=== PATIENT | male | born 1945 | race Caucasian/White ===

== ENCOUNTER 2019-11-04 10:56 | Inpatient (IN) | payer MEDICARE, OTHER ==
--- NOTE | 2019-11-04 12:24 | PDOC ---
History of Present Illness - General Chief Complaint: Nausea/Vomiting Stated Complaint: VOMITING Time Seen by Provider: 11/04/19 12:23 History Source: Patient Exam Limitations: No Limitations - History of Present Illness Initial Comments: 11/04/19 12:23 Ty Galvin is a 74M with PMH mild MR, HTN, DM presenting with hyperglycemia with nausea and vomiting. Per family at bedside, patient speaks only Yi and has some mild MR, but able to communicate without issues. Was otherwise healthy yesterday. This morning was checking BGM before meal and reading was 512, patient asymptomatic at that time but did not eat breakfast. Patient given HTN and DM medications. EMS called, BGM in ambulance 134. BGM in ED 131. In ED patient had one vomiting episode. Per family at bedside getting medications without food prior always causes N/V. By the time of evaluation patient said he felt well and denied N/V, abd pain, chest pain, SOB, SALDANA, dizziness, vision changes. Able to ambulate well without issues. Denies cardiac history, no PSH. Denies any pain anywhere. Past History - Past Medical History Allergies/Adverse Reactions: Allergies Allergy/AdvReac Type Severity Reaction Status Date / Time No Known Allergies Allergy Verified 02/11/13 12:24 Home Medications: Ambulatory Orders Carbidopa/Levodopa [Carbidopa-Levodopa 25-100 Tab] 1 each PO TID 11/04/19 Losartan Potassium 100 mg PO HS 11/04/19 Metoprolol Succinate 100 mg PO DAILY 11/04/19 Omeprazole 40 mg PO DAILY 11/04/19 Tamsulosin HCl 0.4 mg PO DAILY 11/04/19 COPD: No Diabetes: Yes HTN: Yes Hypercholesterolemia: Yes - Immunization History Immunization Up to Date: No - Psycho Social/Smoking Cessation Hx Smoking Status: No Smoking History: Current every day smoker Have you smoked in the past 12 months: Yes Number of Cigarettes Smoked Daily: 0 Information on smoking cessation initiated: No Hx Alcohol Use: No Drug/Substance Use Hx: No Substance Use Type: Alcohol Hx Substance Use Treatment: No Review of Systems - Review of Systems Able to Perform ROS?: Yes Constitutional: No: Chills, Diaphoresis, Fever HEENTM: No: Symptoms Reported Respiratory: No: Cough, Shortness of Breath, SOB with Exertion, SOB at Rest, Productive cough Cardiac (ROS): No: Chest Pain, Irregular Heart Rate, Lightheadedness, Palpitations, Chest Tightness ABD/GI: Yes: Nausea, Vomiting. No: Constipated, Diarrhea, Poor Appetite, Poor Fluid Intake : No: Symptoms Reported Musculoskeletal: No: Symptoms Reported Integumentary: No: Symptoms Reported Neurological: No: Headache, Numbness, Paresthesia, Weakness, Unsteady Gait, Ataxia, Dizziness Endocrine: No: Symptoms Reported Hematologic/Lymphatic: No: Symptoms Reported All Other Systems: Reviewed and Negative *Physical Exam - Vital Signs Last Vital Signs Temp Pulse Resp BP Pulse Ox 98.9 F 64 16 90/55 L 95 11/04/19 11:08 11/04/19 11:08 11/04/19 11:08 11/04/19 11:08 11/04/19 11:08 - Physical Exam General Appearance: Yes: Nourished, Appropriately Dressed, Other (resting comfortably in bed, in NAD). No: Apparent Distress HEENT: positive: EOMI, TITO, Normal ENT Inspection, Normal Voice, Symmetrical, Pharynx Normal. negative: Scleral Icterus (R), Scleral Icterus (L), Pharyngeal Erythema, Tonsillar Exudate, Tonsillar Erythema Neck: positive: Trachea midline, Normal Thyroid, Supple. negative: Tender, Rigid, Lymphadenopathy (R), Lymphadenopathy (L), Tender lateral, Tender midline Respiratory/Chest: positive: Lungs Clear, Normal Breath Sounds. negative: Chest Tender, Respiratory Distress, Accessory Muscle Use, Crackles, Rales, Rhonchi, Stridor, Wheezing Cardiovascular: positive: Regular Rhythm, Regular Rate. negative: Murmur Gastrointestinal/Abdominal: positive: Normal Bowel Sounds, Flat, Soft. negative: Tender, Organomegaly, Pulsatile Mass, Guarding, Rebound Musculoskeletal: positive: Normal Inspection. negative: CVA Tenderness, Decreased Range of Motion ( ) Extremity: positive: Normal Capillary Refill, Normal Inspection, Normal Range of Motion, Pelvis Stable. negative: Tender, Swelling, Calf Tenderness Integumentary: positive: Normal Color, Dry, Warm Neurologic: positive: hand stitcher II-XII NML intact, Fully Oriented, Alert, Normal Mood/Affect, Normal Response, Motor Strength 5/5. negative: Sensory Deficit ED Treatment Course - LABORATORY CBC & Chemistry Diagram: 11/04/19 12:51 11/04/19 12:45 - ADDITIONAL ORDERS Additional order review: Laboratory Results 11/04/19 11:59 POC Glucometer 131 11/04/19 11:59 POC Glucometer 131 Medical Decision Making - Medical Decision Making 11/04/19 13:17 Patient presents with reported hyperglycemia and one episode of vomiting in ED. BGM WNL in ED. Patient is completely asymptomatic at this time, VS stable, no concerning findings on PE. Giving 1L NS and Zofran for nausea, getting CMP/CBC for eval lytes and glucose, ECG for eval arrhythmia, UA/UC for eval UTI, and CXR for eval aspiration. Will re-evaluation, likely stable for discharge home if labs WNL. 11/04/19 14:00 Labs notable for: - WBC 12.6 - BUN 26, Cr 2.0, has SANDEE when compared with prior in 2012 at Cr 0.9, likely 2/2 dehydration, 1L IVF given 11/04/19 14:01 Sister: Mago Webb ([phone]), has a bus route to drive, will be back at ~1500. ECG shows sinus thais with HR 59, QRS 98, QTc 401, no concerning ERIC/D or TWI. Pending UA at this time. 11/04/19 15:50 Patient requires inpatient admission for SANDEE and Cr elevation over 2x baseline and further care, as well as WBC elevation with bandemia. 11/04/19 16:[address] Luna with admitting team, [facility] admit u nder Dr. Rouse. Discharge - Discharge Information Problems reviewed: Yes Clinical Impression/Diagnosis: SANDEE (acute kidney injury) Nausea and vomiting Qualifiers: Vomiting type: unspecified Vomiting Intractability: non-intractable Qualified Code(s): R11.2 - Nausea with vomiting, unspecified Condition: Stable - Admission Yes - Follow up/Referral - Patient Discharge Instructions Patient Printed Discharge Instructions: How to Check Your Blood Glucose Additional Instructions: Today you were evaluated for high blood sugar and vomiting. You were examined and appear well. Your blood works do not show any problems. We gave you some IV fluids and a medication called Zofran for nausea. At home please take your medications as prescribed and eat and drink enough food. Follow-up with your primary doctor inthe next 7 days for further care. If your experience fever, chills, nausea, vomiting, diarrhea, weakness, dizziness, chest pain, or any other new or concerning symptoms, please return to the emergency room. - Post Discharge Activity
[2019-11-04] MEDS ORDERED: SODIUM CHLORIDE 0.9% 500 ML INFUS.BAG IV ONE (12:47)
[2019-11-04] MEDS ORDERED: ONDANSETRON 4 MG/2 ML VIAL IVPUSH ONE (12:47)
[2019-11-04] MEDS ORDERED: ONDANSETRON 4 MG/2 ML VIAL ONE (13:04)
[2019-11-04 13:09] LABS: HEMATOCRIT 40.6 % (35.4-49); HEMOGLOBIN 13.6 GM/dL (11.7-16.9); MCH 28.5 pg (25.7-33.7); MCHC 33.5 g/dl (32.0-35.9); MEAN CELL VOLUME 85.1 fl (80-96); MEAN PLT VOLUME 9.1 fl (7.5-11.1); PLATELET COUNT 187 K/MM3 (134-434); RBC 4.77 M/mm3 (4.00-5.60); RDW 14.3 % (11.9-15.9); WHITE BLOOD COUNT 12.6 K/mm3 (4.0-10.0)
[2019-11-04 13:43] LABS: ALBUMIN 3.3 g/dl (3.4-5.0); ALK PHOS 54 U/L (45-117); ANION GAP 12 MMOL/L (8-16); BILIRUBIN,TOTAL 0.8 mg/dL (0.2-1); BLOOD UREA NITROGEN 26.2 mg/dL (7-18); CALCIUM 8.8 mg/dL (8.5-10.1); CHLORIDE 105 mmol/L (98-107); CO2 23 mmol/L (21-32); GLUCOSE,RANDOM 123 mg/dL (74-106); POTASSIUM 3.5 mmol/L (3.5-5.1); SGOT/AST 26 U/L (15-37); SGPT/ALT 14 U/L (13-61); SODIUM 140 mmol/L (136-145); TOT PROT 7.1 g/dl (6.4-8.2)
--- NOTE | 2019-11-04 13:52 | PDOC ---
Documentation entered by Geronimo Allen SCRIBE, acting as scribe for Tino Hamm MD. Tino Hamm MD: This documentation has been prepared by the Carina hooper Nirvannie, SCRIBE, under my direction and personally reviewed by me in its entirety. I confirm that the documentation accurately reflects all work, treatment, procedures, and medical decision making performed by me. Attending Attestation - Resident Resident Name: Emil Carpenter - ED Attending Attestation I have performed the following: I have examined & evaluated the patient, The case was reviewed & discussed with the resident, I agree w/resident's findings & plan - HPI HPI: 11/04/19 12:52 The patient is a 74 year old male, with a significant past medical history of mild MR, HTN, DM, who presents to the emergency department with hyperglycemia. As per patients family member/caregiver at bedside, she tested his blood sugar prior to having breakfast and he was found to have a blood glucose reading of 512, prompting their activation of EMS. With EMS, patients blood glucose was found to be 334 en route. While in the ER, the patient had one episode of emesis. reported brief light headedness which initially prompted the glucose check at home, spontaneously resolved quickly and now asx. no recent infectious/dehydration/cardiopulmonary complaints. Allergies: NKDA - Physicial Exam PE: 11/04/19 13:49 Vitals as noted, systolic blood pressure in the 90s Well-appearing elderly gentleman lying comfortably in stretcher speaking full sentences, smiling and conversant Cataracts, pupils otherwise equal round reactive to light Neck supple Heart is regular, lungs are clear Abdomen benign 1+ pretibial edema Nonfocal neurological exam - Medical Decision Making 11/04/19 13:50 74-year-old male with history of diabetes and hypertension presents with transient lightheadedness, now resolved, and erroneously elevated glucose level at home. Patient has no specific complaints, no red flags on history or physical exam to suggest cardiopulmonary process or neurological process, examination is within normal limits. Blood pressure is borderline in the 90s, w ill monitor and check versus baseline. Labs, Urinalysis EKG, chest x-ray IV fluids, p.o. trial Reassess Heart Score/ECG Review #1 ECG reviewed & interpreted by me at: 14:18 General ECG Interpretation: Sinus Rhythm, Normal Rate (59), Normal Intervals (qtc 401), No acute ischemic changes
[2019-11-04 15:54] LABS: ANISOCYTOSIS 1+; MACROCYTOSIS 0; OVALOCYTE 1+; PLATELET ESTIMATE NORMAL
[2019-11-04] MEDS ORDERED: SODIUM CHLORIDE 1,000 ML IV STA (16:56)
--- NOTE | 2019-11-04 17:08 | HP ---
CHIEF COMPLAINT:dizziness; nausea PCP: HISTORY OF PRESENT ILLNESS: 74 y/o male with PMH of BPH HTN DM congential developmental delay presents to the ED with vague complaints of dizziness/nausea/decreased PO intake as per patients sister; she states he felt dizzy yesterday and today he did not eat anything; she initially took his blood sugar and she thought it was in the 500's then called EMS and it was 140 when he got to the ED he had an episode of vomiting- ; denies any fevers/chills/recent sick contact or travel- patient lives with sister; ambulates on his own - patient did have an episode of vomiting in the ED ER course was notable for: (1) BP 86/66 (2)wbc 12.6, Cr 2 (baseline 1.3) (3)given NS and zofran Recent Travel: denies PAST MEDICAL HISTORY: denies PAST SURGICAL HISTORY: denies Social History: Smoking: never smoked Alcohol:no alcohol use Drugs: no drug use Allergies No Known Allergies Allergy (Verified 02/11/13 12:24) HOME MEDICATIONS: Home Medications Medication Instructions Recorded Carbidopa/Levodopa 1 each PO TID 11/04/19 [Carbidopa-Levodopa 25-100 Tab] Losartan Potassium 100 mg PO HS 11/04/19 Metoprolol Succinate 100 mg PO DAILY 11/04/19 Omeprazole 40 mg PO DAILY 11/04/19 Tamsulosin HCl 0.4 mg PO DAILY 11/04/19 REVIEW OF SYSTEMS CONSTITUTIONAL: Absent: fever, chills, diaphoresis, generalized weakness, malaise, loss of appetite, weight change HEENT: Absent: rhinorrhea, nasal congestion, throat pain, throat swelling, difficulty swallowing, mouth swelling, ear pain, eye pain, visual changes CARDIOVASCULAR: Absent: chest pain, syncope, palpitations, irregular heart rate, lightheadedness, peripheral edema RESPIRATORY: Absent: cough, shortness of breath, dyspnea with exertion, orthopnea, wheezing, stridor, hemoptysis GASTROINTESTINAL: Present: nausea Absent: abdominal pain, abdominal distension, vomiting, diarrhea, constipation, melena, hematochezia GENITOURINARY: Absent: dysuria, frequency, urgency, hesitancy, hematuria, flank pain, genital pain MUSCULOSKELETAL: Absent: myalgia, arthralgia, joint swelling, back pain, neck pain SKIN: Absent: rash, itching, pallor HEMATOLOGIC/IMMUNOLOGIC: Absent: easy bleeding, easy bruising, lymphadenopathy, frequent infections ENDOCRINE: Absent: unexplained weight gain, unexplained weight loss, heat intolerance, cold intolerance NEUROLOGIC: Absent: headache, focal weakness or paresthesias, dizziness, unsteady gait, seizure, mental status changes, bladder or bowel incontinence PSYCHIATRIC: Absent: anxiety, depression, suicidal or homicidal ideation, hallucinations. PHYSICAL EXAMINATION Vital Signs - 24 hr 11/04/19 11/04/19 11/04/19 11:08 12:31 14:50 Temperature 98.9 F Pulse Rate 64 Pulse Rate [ 65 61 Left Radial] Respiratory 16 18 18 Rate Blood Pressure 90/55 L Blood Pressure 97/62 101/63 [Right Arm] O2 Sat by Pulse 95 96 99 Oximetry (%) GENERAL: Awake, alert, and fully oriented, in no acute distress.. EYES: PEERLA; EOMI; no scleral icterus NECK: no JVD; no lymphadenopathy LUNGS: CTA B/L; no rales, rhonchi or wheezing HEART: Regular rate and rhythm, normal S1 and S2 without murmur, rub or gallop. ABDOMEN: Soft, NT/ND +BS in all 4 quadrants MUSCULOSKELETAL: Normal range of motion at all joints. No bony deformities or tenderness. No CVA tenderness. EXTREMITIES: warm; well-perfused no clubbing/cyanosis or edema NEUROLOGICAL: Cranial nerves II-XII intact. Normal speech. Normal gait. SKIN: Warm, dry, normal turgor, no rashes or lesions noted, normal capillary refill. Laboratory Results - last 24 hr 11/04/19 11/04/19 11/04/19 11:59 12:45 12:51 WBC 12.6 H RBC 4.77 Hgb 13.6 Hct 40.6 MCV 85.1 MCH 28.5 MCHC 33.5 RDW 14.3 Plt Count 187 D MPV 9.1 Absolute Neuts (auto) Neutrophils % Neutrophils % (Manual) 63.3 Band Neutrophils % 23.5 Lymphocytes % Lymphocytes % (Manual) 3.0 L Monocytes % Monocytes % (Manual) 7 Eosinophils % Eosinophils % (Manual) 0.0 Basophils % Basophils % (Manual) 0.0 Myelocytes % (Man) 0 Promyelocytes % (Man) 0 Blast Cells % (Manual) 0 Nucleated RBC % 0 Metamyelocytes 0 Hypochromia 0 Platelet Estimate Normal Polychromasia 0 Poikilocytosis 1+ Anisocytosis 1+ Microcytosis 1+ Macrocytosis 0 Spherocytes 1+ Ovalocytes 1+ Sodium 140 Potassium 3.5 Chloride 105 Carbon Dioxide 23 Anion Gap 12 BUN 26.2 H Creatinine 2.0 H Est GFR (CKD-EPI)AfAm 37.53 Est GFR (CKD-EPI)NonAf 32.38 POC Glucometer 131 Random Glucose 123 H Calcium 8.8 Total Bilirubin 0.8 AST 26 ALT 14 Alkaline Phosphatase 54 Total Protein 7.1 Albumin 3.3 L ASSESSMENT/PLAN: 74 y/o male with PMH of BPH HTN DM congential developmental delay presents to the ED with vague complaints of dizziness/nausea/decreased PO intake found to have an SANDEE #SANDEE likely 2/2 poor PO intake -Cr on arrival 2.0 (baseline 1.2) -IVF -renal/bladder US -urine lytes ordered to calculate FeNa -nephro consulted -holding ARB #HTN patient was hypotensive on arrival; responding to fluid -holding ARB given SANDEE -holding beta baltazar and will reevaluate in AM based on hemodynamics -echo ordered #DM -BGMS ACHS -ISS ACHS #Tremors c/w sinemet F/E/N ns@75 monitor electrolytes sodium-controlled diet dvt ppx: heparin sq Family Medical History Family History: Denies Problem List - Problem (1) SANDEE (acute kidney injury) Code(s): N17.9 - ACUTE KIDNEY FAILURE, UNSPECIFIED (2) Nausea and vomiting Code(s): R11.2 - NAUSEA WITH VOMITING, UNSPECIFIED Qualifiers: Vomiting type: unspecified Vomiting Intractability: non-intractable Qualified Code(s): R11.2 - Nausea with vomiting, unspecified Visit type - Emergency Visit Emergency Visit: Yes Care time: The patient presented to the Emergency Department on the above date and was hospitalized for further evaluation of their emergent condition. - New Patient This patient is new to me today: Yes Date on this admission: 11/04/19 - Critical Care Critical Care patient: No ATTENDING PHYSICIAN STATEMENT I saw and evaluated the patient. I reviewed the resident's note and discussed the case with the resident. I agree with the resident's findings and plan as documented. SUBJECTIVE: OBJECTIVE: ASSESSMENT AND PLAN:
[2019-11-04 17:26] LABS: EPI CELLS 0.3 /HPF (0-5/HPF); HYALINE CASTS 7 /lpf (0-8); PH,URINE 7.5 (5.0-8.0); URINE APPEARANCE CLOUDY; URINE BACTERIA 7809.8 /hpf (NEGATIVE); URINE BILIRUBIN NEGATIVE (NEGATIVE); URINE COLOR YELLOW; URINE GLUCOSE (UA) NEGATIVE (NEGATIVE); URINE KETONE NEGATIVE (NEGATIVE); URINE LEUK ESTERASE 2+ (NEGATIVE); URINE NITRITE NEGATIVE (NEGATIVE); URINE PROTEIN NEGATIVE (NEGATIVE); URINE RBC 2 /hpf (0-4); URINE UROBILINOGEN 0.2 mg/dL (0.2-1.0); URINE WBC 27 /hpf (0-5)
[2019-11-04] MEDS: SODIUM CHLORIDE 1,000 ML IV SCH ×2 (19:23→22:33)
--- NOTE | 2019-11-04 19:23 | PN ---
Teaching Attending Note Name of Resident: Deborah Hernandes ATTENDING PHYSICIAN STATEMENT I saw and evaluated the patient. I reviewed the resident's note and discussed the case with the resident. I agree with the resident's findings and plan as documented. SUBJECTIVE: Patient seen and examined at beside, denies CP/SOB, endorses taking NSAID for LBP, denies bleeding from any source, feels OK overall, VSS. ObjectiveL GENERAL: AAox3, mild MR but responds to questions, sister at bedside, NAD EYES: EOMI, mild strabismus (chronic), neck supple, TITO NECK: no JVD LUNGS: CTAB, no crackles HEART: S1, S2+, RRR ABDOMEN: Soft, NT, ND, BS+, no CVA tenderness MUSCULOSKELETAL: Normal range of motion at all joints. No bony deformities or tenderness. No CVA tenderness. EXTREMITIES: warm; well-perfused no clubbing/cyanosis or edema NEUROLOGICAL: Cranial nerves II-XII intact. Normal speech. Normal gait. Vital Signs - 24 hr 11/04/19 11/04/19 11/04/19 11:08 12:31 14:50 Temperature 98.9 F Pulse Rate 64 Pulse Rate [ 65 61 Left Radial] Respiratory 16 18 18 Rate Blood Pressure 90/55 L Blood Pressure 97/62 101/63 [Right Arm] O2 Sat by Pulse 95 96 99 Oximetry (%) Laboratory Results - last 24 hr 11/04/19 11/04/19 11/04/19 11:59 12:45 12:51 WBC 12.6 H RBC 4.77 Hgb 13.6 Hct 40.6 MCV 85.1 MCH 28.5 MCHC 33.5 RDW 14.3 Plt Count 187 D MPV 9.1 Absolute Neuts (auto) Neutrophils % Neutrophils % (Manual) 63.3 Band Neutrophils % 23.5 Lymphocytes % Lymphocytes % (Manual) 3.0 L Monocytes % Monocytes % (Manual) 7 Eosinophils % Eosinophils % (Manual) 0.0 Basophils % Basophils % (Manual) 0.0 Myelocytes % (Man) 0 Promyelocytes % (Man) 0 Blast Cells % (Manual) 0 Nucleated RBC % 0 Metamyelocytes 0 Hypochromia 0 Platelet Estimate Normal Polychromasia 0 Poikilocytosis 1+ Anisocytosis 1+ Microcytosis 1+ Macrocytosis 0 Spherocytes 1+ Ovalocytes 1+ Sodium 140 Potassium 3.5 Chloride 105 Carbon Dioxide 23 Anion Gap 12 BUN 26.2 H Creatinine 2.0 H Est GFR (CKD-EPI)AfAm 37.53 Est GFR (CKD-EPI)NonAf 32.38 POC Glucometer 131 Random Glucose 123 H Calcium 8.8 Total Bilirubin 0.8 AST 26 ALT 14 Alkaline Phosphatase 54 Total Protein 7.1 Albumin 3.3 L Urine Color Urine Appearance Urine pH Ur Specific [place] Urine Protein Urine Glucose (UA) Urine Ketones Urine Blood Urine Nitrite Urine Bilirubin Urine Urobilinogen Ur Leukocyte Esterase Urine WBC (Auto) Urine RBC (Auto) Urine Casts (Auto) U Epithel Cells (Auto) Urine Bacteria (Auto) Ur Random Creatinine Ur Random Sodium Ur Random Urea Nitrogn 11/04/19 11/04/19 11/04/19 16:00 17:20 17:20 WBC RBC Hgb Hct MCV MCH MCHC RDW Plt Count MPV Absolute Neuts (auto) Neutrophils % Neutrophils % (Manual) Band Neutrophils % Lymphocytes % Lymphocytes % (Manual) Monocytes % Monocytes % (Manual) Eosinophils % Eosinophils % (Manual) Basophils % Basophils % (Manual) Myelocytes % (Man) Promyelocytes % (Man) Blast Cells % (Manual) Nucleated RBC % Metamyelocytes Hypochromia Platelet Estimate Polychromasia Poikilocytosis Anisocytosis Microcytosis Macrocytosis Spherocytes Ovalocytes Sodium Potassium Chloride Carbon Dioxide Anion Gap BUN Creatinine Est GFR (CKD-EPI)AfAm Est GFR (CKD-EPI)NonAf POC Glucometer Random Glucose Calcium Total Bilirubin AST ALT Alkaline Phosphatase Total Protein Albumin Urine Color Yellow Urine Appearance Cloudy Urine pH 7.5 D Ur Specific [place] 1.019 Urine Protein Negative Urine Glucose (UA) Negative Urine Ketones Negative Urine Blood Negative Urine Nitrite Negative Urine Bilirubin Negative Urine Urobilinogen 0.2 Ur Leukocyte Esterase 2+ H Urine WBC (Auto) 27 Urine RBC (Auto) 2 Urine Casts (Auto) 7 U Epithel Cells (Auto) 0.3 Urine Bacteria (Auto) 7809.8 Ur Random Creatinine 298.0 H Ur Random Sodium 46 Ur Random Urea Nitrogn 725 Home Medications Medication Instructions Recorded Carbidopa/Levodopa 1 each PO TID 11/04/19 [Carbidopa-Levodopa 25-100 Tab] Losartan Potassium 100 mg PO HS 11/04/19 Metoprolol Succinate 100 mg PO DAILY 11/04/19 Omeprazole 40 mg PO DAILY 11/04/19 Tamsulosin HCl 0.4 mg PO DAILY 11/04/19 Current Medications Generic Name Dose Route Start Last Admin Trade Name Freq PRN Reason Stop Dose Admin Carbidopa/Levodopa 1 each 11/04/19 22:00 Sinemet 25/100 - PO TID [facility] Heparin Sodium (Porcine) 5,000 unit 11/04/19 22:00 Heparin - SQ TID [facility] Sodium Chloride 1,000 mls @ 60 mls/hr 11/04/19 17:30 Normal Saline - IV ASDIR [facility] Insulin Aspart 1 vial 11/04/19 22:00 Novolog Vial Sliding Scale - SQ ACHS [facility] Protocol Metoprolol Succinate 100 mg 11/05/19 10:00 Toprol Xl - PO DAILY [facility] Pantoprazole Sodium 40 mg 11/05/19 10:00 Protonix - PO DAILY [facility] Tamsulosin HCl 0.4 mg 11/05/19 08:30 Flomax - PO DAILY@0830 [facility] 74 [place] speaking M h/o BPH, HTN, DM, mild MR presents to the ED w/ remote h/o vomiting (not clear), NSAID use, hyperglycemia, admitted for SANDEE. SANDEE likely pre-renal and renal (NSAID use recently) fluid challenge, trend CRE, avoid nephrotoxins (counseled pt. and sister), renal/bladder US with urine lytes Renal evaluation: Dr Rutherford HTN hold ARB (in view of SANDEE and low BPs) hold BB for now in view of low BP (obtain further collateral on why pt. 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 Sinamet BPH resume Flomax GERD hold PPI in view of SANDEE DVT ppx Heparin SC Med surg
[2019-11-04 20:48] LABS: LIPASE 95 U/L (73-393)
[2019-11-04] MEDS: INSULIN SLIDING SCALE (NOVOLOG) 1 VIAL SQ SCH (22:29)
[2019-11-04] MEDS: CARBIDOPA/LEVODOPA 25/100 TABLET (FP) PO SCH (22:32)
[2019-11-04] MEDS: HEPARIN NA (PORCINE) 5,000 UNITS/ML 1ML VIAL SQ SCH (22:32)
[2019-11-05 04:23] VITALS: BMI 34.0
[2019-11-05] MEDS: INSULIN SLIDING SCALE (NOVOLOG) 1 VIAL SQ SCH ×4 (06:42→21:28)
[2019-11-05] MEDS: CARBIDOPA/LEVODOPA 25/100 TABLET (FP) PO SCH ×3 (06:43→21:30)
[2019-11-05] MEDS: HEPARIN NA (PORCINE) 5,000 UNITS/ML 1ML VIAL SQ SCH ×3 (06:43→21:29)
[2019-11-05 09:04] LABS: BASO % 0.2 % (0-2.0); EOS % 0.2 % (0-4.5); HEMATOCRIT 35.5 % (35.4-49); LYMPH % 13.7 % (8-40); MCH 28.6 pg (25.7-33.7); MCHC 33.8 g/dl (32.0-35.9); MEAN CELL VOLUME 84.5 fl (80-96); MEAN PLT VOLUME 8.8 fl (7.5-11.1); MONO % 8.8 % (3.8-10.2); NEUT % 77.1 % (42.8-82.8); PLATELET COUNT 134 K/MM3 (134-434); RDW 14.3 % (11.9-15.9); WHITE BLOOD COUNT 7.7 K/mm3 (4.0-10.0)
[2019-11-05] MEDS: TAMSULOSIN HCL 0.4 MG CAP PO SCH (09:36)
[2019-11-05] MEDS: PANTOPRAZOLE 40 MG TABLET PO SCH (09:36)
[2019-11-05 09:49] LABS: ALBUMIN 2.6 g/dl (3.4-5.0); BLOOD UREA NITROGEN 23.7 mg/dL (7-18); CALCIUM 7.7 mg/dL (8.5-10.1); CREATININE 1.6 mg/dL (0.55-1.3); MAGNESIUM 1.5 mg/dL (1.8-2.4); PHOSPHOROUS 2.3 mg/dL (2.5-4.9); POTASSIUM 3.5 mmol/L (3.5-5.1)
--- NOTE | 2019-11-05 11:14 | EKG ---
Test Reason : Blood Pressure : / mmHG Vent. Rate : 059 BPM Atrial Rate : 059 BPM P-R Int : 204 ms QRS Dur : 098 ms QT Int : 406 ms P-R-T Axes : 058 046 046 degrees QTc Int : 401 ms SINUS BRADYCARDIA OTHERWISE NORMAL ECG WHEN COMPARED WITH ECG OF 17-FEB-2013 10:33, NO SIGNIFICANT CHANGE WAS FOUND Confirmed by MD ISHAAN, ALPHONSO ([id number]) on 11/05/2019 11:13:40 AM Referred By: Confirmed By:ALPHONSO QUIROS MD
--- NOTE | 2019-11-05 12:41 | ECHO ---
Version: 1 Name: JOEY LION Exam: Adult Echocardiogram Study Date: 11/05/2019, 10:10 AM Age: 74 Years MMode/2D Measurements & Calculations IVSd: 1.16 cm LVIDs: 3.0 cm LVIDd: 4.3 cm LVPWd: 1.22 cm ACS: 2.08 cm Ao root diam: 3.7 cm LVOT diam: 1.93 cm LA dimension: 4.1 cm Doppler Measurements & Calculations MV E max jerry: 67.0 cm/sec Med E/e': 7.5 MV A max jerry: 77.6 cm/sec Med Peak E' Jerry: 8.9 cm/sec MV E/A: 0.86 Lat E/e': 6.7 Lat Peak E' Jerry: 10.0 cm/sec MR max P.0 mmHg Ao max P.0 mmHg DIOR(I,D): 1.97 cm Ao mean P.6 mmHg LV V1 mean: 57.9 cm/sec Ao V2 max: 122.2 cm/sec LV V1 mean P.54 mmHg PI end-d jerry: 104.5 cm/sec TR max jerry: 247.0 cm/sec TR max P.0 mmHg Procedure A complete two-dimensional transthoracic echocardiogram was performed (2D, M-mode, Doppler and color flow Doppler). The patient was in normal sinus rhythm during the exam. Left Ventricle The left ventricle is normal in size. There is borderline concentric left ventricular hypertrophy. T he left ventricular ejection fraction is normal. Ejection Fraction = 65%. The transmitral spectral Doppler f low pattern is suggestive of impaired LV relaxation. The left ventricular wall motion is normal. Right Ventricle The right ventricle is normal in size and function. Atria The left atrium is borderline dilated. Right atrial size is normal. Mitral Valve The mitral valve is normal in structure and function. There is trace mitral regurgitation. Tricuspid Valve The tricuspid valve is normal in structure and function. There is trace tricuspid regurgitation. Rig ht ventricular systolic pressure is 25 mmhg. Aortic Valve The aortic valve is normal in structure and function. Pulmonic Valve The pulmonic valve is not well visualized. Great Vessels The aortic root is normal size. Pericardium/Pleura There is no pericardial effusion. There is no pleural effusion. Summary Statements The left ventricle is normal in size. There is borderline concentric left ventricular hypertrophy. The left ventricular wall motion is normal. Ejection Fraction = 65%. The right ventricle is normal in size and function. The left atrium is borderline dilated. There is trace mitral regurgitation. There is trace tricuspid regurgitation. Right ventricular systolic pressure is 25 mmhg. MD Blayne Martínez 11/05/2019, 12:40 PM Ordering Physician: Deborah Hernandes Performed By: Tammi Pratt
--- NOTE | 2019-11-05 13:33 | CONSULT ---
Consult Consult Specialty:: Nephrology Reason for Consultation:: SANDEE - History of Present Illness Chief Complaint: nausea and decrease po intake History of Present Illness: Pt is a 74 year old male with pmhx of htn, dm, developemental delay who presents to the ER with decreased PO intake and nausea. He is accompanied by his sister who assisted with his history. He was found to have SANDEE and I was called to evaluate him. He was found to have a blood sugar of 500 at home. It was improved to 140 in the ER. He did have a few episodes of vomiting. He feels better today. He denies shortness of breath. His renal function improved with hydration. - History Source History Provided By: Patient, Family Member - Past Medical History Cardio/Vascular: Yes: HTN Endocrine: Yes: Diabetes Mellitus - Alcohol/Substance Use Hx Alcohol Use: No - Smoking History Smoking history: Current every day smoker Have you smoked in the past 12 months: Yes Aproximately how many cigarettes per day: 0 Home Medications - Allergies Allergies/Adverse Reactions: Allergies Allergy/AdvReac Type Severity Reaction Status Date / Time No Known Allergies Allergy Verified 02/11/13 12:24 - Home Medications Home Medications: Ambulatory Orders Carbidopa/Levodopa [Carbidopa-Levodopa 25-100 Tab] 1 each PO TID 11/04/19 Losartan Potassium 100 mg PO HS 11/04/19 Metoprolol Succinate 100 mg PO DAILY 11/04/19 Omeprazole 40 mg PO DAILY 11/04/19 Tamsulosin HCl 0.4 mg PO DAILY 11/04/19 metFORMIN HCL [Metformin HCl] 500 mg DAILY 11/05/19 Family Medical History Family History: Denies Review of Systems - Review of Systems Constitutional: reports: Malaise Eyes: reports: No Symptoms HENT: reports: No Symptoms Neck: reports: No Symptoms Cardiovascular: reports: No Symptoms Respiratory: reports: No Symptoms Gastrointestinal: reports: Nausea, Vomiting Musculoskeletal: reports: No Symptoms Integumentary: reports: No Symptoms Neurological: reports: No Symptoms Endocrine: reports: No Symptoms Hematology/Lymphatic: reports: No Symptoms Psychiatric: reports: No Symptoms Physical Exam Vital Signs: Vital Signs Temperature 98.4 F 11/05/19 09:09 Pulse Rate 52 L 11/05/19 09:09 Respiratory Rate 20 11/05/19 09:09 Blood Pressure 105/41 L 11/05/19 09:09 O2 Sat by Pulse Oximetry (%) 95 11/05/19 09:00 Constitutional: Yes: Calm Eyes: Yes: Conjunctiva Clear HENT: Yes: Atraumatic Neck: Yes: Supple Cardiovascular: Yes: S1, S2 Respiratory: Yes: CTA Bilaterally Gastrointestinal: Yes: Normal Bowel Sounds, Soft Renal/: Yes: WNL Musculoskeletal: Yes: WNL Edema: No Neurological: Yes: Oriented Psychiatric: Yes: Oriented Labs: CBC, BMP 11/05/19 08:00 11/05/19 08:00 Imaging - Results Ultrasound: Report Reviewed Problem List - Problems (1) SANDEE (acute kidney injury) Code(s): N17.9 - ACUTE KIDNEY FAILURE, UNSPECIFIED (2) Nausea and vomiting Code(s): R11.2 - NAUSEA WITH VOMITING, UNSPECIFIED Qualifiers: Vomiting type: unspecified Vomiting Intractability: non-intractable Qualified Code(s): R11.2 - Nausea with vomiting, unspecified Assessment/Plan Current Medications Generic Name Dose Route Start Last Admin Trade Name Freq PRN Reason Stop Dose Admin Carbidopa/Levodopa 1 each 11/04/19 22:00 11/05/19 06:43 Sinemet 25/100 - PO 1 each TID ROLLY Administration Heparin Sodium (Porcine) 5,000 unit 11/04/19 22:00 11/05/19 06:43 Heparin - SQ 5,000 unit TID ROLLY Administration Sodium Chloride 1,000 mls @ 60 mls/hr 11/04/19 17:30 11/04/19 22:33 Normal Saline - IV 60 mls/hr ASDIR ROLLY Administration Insulin Aspart 1 vial 11/04/19 22:00 11/05/19 11:55 Novolog Vial Sliding Scale - SQ Not Given ACHS [facility] Protocol Metoprolol Succinate 100 mg 11/05/19 10:00 11/05/19 09:36 Toprol Xl - PO 100 mg DAILY ROLLY Administration Pantoprazole Sodium 40 mg 11/05/19 10:00 11/05/19 09:36 Protonix - PO 40 mg DAILY ROLLY Administration Tamsulosin HCl 0.4 mg 11/05/19 08:30 11/05/19 09:36 Flomax - PO 0.4 mg DAILY@0830 ROLLY Administration Impression 1. SANDEE 2. DM 3. dehydration 4. htn 5. bph Plan - cont fluids, cras improving - metformin on hold, can resume once cras improved - likely pre-renal disease as cras is improving with hydration - losartan 100 mg on hold, monitor bp which is low, will likely need to decrease dose once restarted - renal ultrasound reviewed
--- NOTE | 2019-11-05 15:16 | PN ---
Teaching Attending Note Name of Resident: Ryne Doe ATTENDING PHYSICIAN STATEMENT I saw and evaluated the patient. I reviewed the resident's note and discussed the case with the resident. I agree with the resident's findings and plan as documented. SUBJECTIVE: Feels well, no complaints. No abdominal pain/nausea/vomiting. OBJECTIVE: Afebrile, Hemodynamically Stable. Last Vital Signs Temp Pulse Resp BP Pulse Ox 97.6 F 58 L 18 101/56 L 95 11/05/19 14:54 11/05/19 14:54 11/05/19 14:54 11/05/19 14:54 11/05/19 09:00 HEENT - Atraumatic, normocephalic Heart - S1, S2, RRR Lungs - clear to auscultation Abdomen - soft, non-tender. Bowel Sounds normal. Extremities - no edema, no calf tenderness. Laboratory Results - last 24 hr 11/04/19 11/04/19 11/04/19 12:45 12:51 16:00 WBC RBC Hgb Hct MCV MCH MCHC RDW Plt Count MPV Absolute Neuts (auto) Neutrophils % Neutrophils % (Manual) 63.3 Band Neutrophils % 23.5 Lymphocytes % Lymphocytes % (Manual) 3.0 L Monocytes % Monocytes % (Manual) 7 Eosinophils % Eosinophils % (Manual) 0.0 Basophils % Basophils % (Manual) 0.0 Myelocytes % (Man) 0 Promyelocytes % (Man) 0 Blast Cells % (Manual) 0 Nucleated RBC % 0 Metamyelocytes 0 Hypochromia 0 Platelet Estimate Normal Polychromasia 0 Poikilocytosis 1+ Anisocytosis 1+ Microcytosis 1+ Macrocytosis 0 Spherocytes 1+ Ovalocytes 1+ Sodium 140 Potassium 3.5 Chloride 105 Carbon Dioxide 23 Anion Gap 12 BUN 26.2 H Creatinine 2.0 H Est GFR (CKD-EPI)AfAm 37.53 Est GFR (CKD-EPI)NonAf 32.38 POC Glucometer Random Glucose 123 H Calcium 8.8 Phosphorus Magnesium Total Bilirubin 0.8 AST 26 ALT 14 Alkaline Phosphatase 54 Creatine Kinase 155 Creatine Kinase Index No Result Required. CK-MB (CK-2) < 1.0 Troponin I < 0.02 Total Protein 7.1 Albumin 3.3 L Lipase 95 Urine Color Yellow Urine Appearance Cloudy Urine pH 7.5 D Ur Specific [place] 1.019 Urine Protein Negative Urine Glucose (UA) Negative Urine Ketones Negative Urine Blood Negative Urine Nitrite Negative Urine Bilirubin Negative Urine Urobilinogen 0.2 Ur Leukocyte Esterase 2+ H Urine WBC (Auto) 27 Urine RBC (Auto) 2 Urine Casts (Auto) 7 U Epithel Cells (Auto) 0.3 Urine Bacteria (Auto) 7809.8 Ur Random Creatinine Ur Random Sodium Ur Random Urea Nitrogn 11/04/19 11/04/19 11/04/19 17:20 17:20 22:25 WBC RBC Hgb Hct MCV MCH MCHC RDW Plt Count MPV Absolute Neuts (auto) Neutrophils % Neutrophils % (Manual) Band Neutrophils % Lymphocytes % Lymphocytes % (Manual) Monocytes % Monocytes % (Manual) Eosinophils % Eosinophils % (Manual) Basophils % Basophils % (Manual) Myelocytes % (Man) Promyelocytes % (Man) Blast Cells % (Manual) Nucleated RBC % Metamyelocytes Hypochromia Platelet Estimate Polychromasia Poikilocytosis Anisocytosis Microcytosis Macrocytosis Spherocytes Ovalocytes Sodium Potassium Chloride Carbon Dioxide Anion Gap BUN Creatinine Est GFR (CKD-EPI)AfAm Est GFR (CKD-EPI)NonAf POC Glucometer 86 Random Glucose Calcium Phosphorus Magnesium Total Bilirubin AST ALT Alkaline Phosphatase Creatine Kinase Creatine Kinase Index CK-MB (CK-2) Troponin I Total Protein Albumin Lipase Urine Color Urine Appearance Urine pH Ur Specific [place] Urine Protein Urine Glucose (UA) Urine Ketones Urine Blood Urine Nitrite Urine Bilirubin Urine Urobilinogen Ur Leukocyte Esterase Urine WBC (Auto) Urine RBC (Auto) Urine Casts (Auto) U Epithel Cells (Auto) Urine Bacteria (Auto) Ur Random Creatinine 298.0 H Ur Random Sodium 46 Ur Random Urea Nitrogn 725 11/05/19 11/05/19 11/05/19 06:41 08:00 08:00 WBC 7.7 RBC 4.20 Hgb 12.0 Hct 35.5 MCV 84.5 MCH 28.6 MCHC 33.8 RDW 14.3 Plt Count 134 D MPV 8.8 Absolute Neuts (auto) 5.9 Neutrophils % 77.1 D Neutrophils % (Manual) Band Neutrophils % Lymphocytes % 13.7 D Lymphocytes % (Manual) Monocytes % 8.8 Monocytes % (Manual) Eosinophils % 0.2 D Eosinophils % (Manual) Basophils % 0.2 Basophils % (Manual) Myelocytes % (Man) Promyelocytes % (Man) Blast Cells % (Manual) Nucleated RBC % 0 Metamyelocytes Hypochromia Platelet Estimate Polychromasia Poikilocytosis Anisocytosis Microcytosis Macrocytosis Spherocytes Ovalocytes Sodium 141 Potassium 3.5 Chloride 110 H Carbon Dioxide 23 Anion Gap 8 BUN 23.7 H Creatinine 1.6 H Est GFR (CKD-EPI)AfAm 49.15 Est GFR (CKD-EPI)NonAf 42.41 POC Glucometer 104 Random Glucose 94 Calcium 7.7 L Phosphorus 2.3 L Magnesium 1.5 L Total Bilirubin 1.0 AST 28 ALT 9 L Alkaline Phosphatase 40 L Creatine Kinase Creatine Kinase Index CK-MB (CK-2) Troponin I Total Protein 6.0 L Albumin 2.6 L Lipase Urine Color Urine Appearance Urine pH Ur Specific [place] Urine Protein Urine Glucose (UA) Urine Ketones Urine Blood Urine Nitrite Urine Bilirubin Urine Urobilinogen Ur Leukocyte Esterase Urine WBC (Auto) Urine RBC (Auto) Urine Casts (Auto) U Epithel Cells (Auto) Urine Bacteria (Auto) Ur Random Creatinine Ur Random Sodium Ur Random Urea Nitrogn 11/05/19 11:53 WBC RBC Hgb Hct MCV MCH MCHC RDW Plt Count MPV Absolute Neuts (auto) Neutrophils % Neutrophils % (Manual) Band Neutrophils % Lymphocytes % Lymphocytes % (Manual) Monocytes % Monocytes % (Manual) Eosinophils % Eosinophils % (Manual) Basophils % Basophils % (Manual) Myelocytes % (Man) Promyelocytes % (Man) Blast Cells % (Manual) Nucleated RBC % Metamyelocytes Hypochromia Platelet Estimate Polychromasia Poikilocytosis Anisocytosis Microcytosis Macrocytosis Spherocytes Ovalocytes Sodium Potassium Chloride Carbon Dioxide Anion Gap BUN Creatinine Est GFR (CKD-EPI)AfAm Est GFR (CKD-EPI)NonAf POC Glucometer 114 Random Glucose Calcium Phosphorus Magnesium Total Bilirubin AST ALT Alkaline Phosphatase Creatine Kinase Creatine Kinase Index CK-MB (CK-2) Troponin I Total Protein Albumin Lipase Urine Color Urine Appearance Urine pH Ur Specific [place] Urine Protein Urine Glucose (UA) Urine Ketones Urine Blood Urine Nitrite Urine Bilirubin Urine Urobilinogen Ur Leukocyte Esterase Urine WBC (Auto) Urine RBC (Auto) Urine Casts (Auto) U Epithel Cells (Auto) Urine Bacteria (Auto) Ur Random Creatinine Ur Random Sodium Ur Random Urea Nitrogn Current Medications Generic Name Dose Route Start Last Admin Trade Name Freq PRN Reason Stop Dose Admin Carbidopa/Levodopa 1 each 11/04/19 22:00 11/05/19 14:26 Sinemet 25/100 - PO 1 each TID ROLLY Administration Heparin Sodium (Porcine) 5,000 unit 11/04/19 22:00 11/05/19 14:26 Heparin - SQ 5,000 unit TID ROLLY Administration Sodium Chloride 1,000 mls @ 60 mls/hr 11/04/19 17:30 11/04/19 22:33 Normal Saline - IV 60 mls/hr ASDIR ROLLY Administration Insulin Aspart 1 vial 11/04/19 22:00 11/05/19 11:55 Novolog Vial Sliding Scale - SQ Not Given ACHS [facility] Protocol Metoprolol Succinate 100 mg 11/05/19 10:00 11/05/19 09:36 Toprol Xl - PO 100 mg DAILY ROLLY Administration Pantoprazole Sodium 40 mg 11/05/19 10:00 11/05/19 09:36 Protonix - PO 40 mg DAILY ROLLY Administration Tamsulosin HCl 0.4 mg 11/05/19 08:30 11/05/19 09:36 Flomax - PO 0.4 mg DAILY@0830 ROLLY Administration Home Medications Medication Instructions Recorded Carbidopa/Levodopa 1 each PO TID 11/04/19 [Carbidopa-Levodopa 25-100 Tab] Losartan Potassium 100 mg PO HS 11/04/19 Metoprolol Succinate 100 mg PO DAILY 11/04/19 Omeprazole 40 mg PO DAILY 11/04/19 Tamsulosin HCl 0.4 mg PO DAILY 11/04/19 metFORMIN HCL [Metformin HCl] 500 mg DAILY 11/05/19 ASSESSMENT AND PLAN: 74 year old male with BPH, HTN, DM 2, mild MR, admitted with SANDEE. 1. SANDEE, likely pre-renal, ?sec to NSAID use. Renal/Bladder US negative renal function improving with IV hydration Nephrology consulted. 2. HTN - ARB held due to SANDEE. Continue Metoprolol. 3. DM 2 - Metformin held. continue Novolog sliding scale. 4. Parkinson's Disease - continue Sinemet. 5. BPH - continue Flomax. 6. Hypomagnesemia/Hypophosphatemia - repleted. DVT Px - Heparin SQ.
[2019-11-05] MEDS ORDERED: MAGNESIUM SULF 50% (8.12 MEQ/2 ML-1 GM VIAL) IVPB ONE (16:15)
--- NOTE | 2019-11-05 16:24 | PN ---
Physical Exam: SUBJECTIVE: Patient seen and examined. Patient denies dizziness, chest pain, abd pain, SOB, or other concerns. States that he feels better. OBJECTIVE: Vital Signs Period Temp Pulse Resp BP Sys/Lindsay Pulse Ox Last 24 Hr 97.6 F-98.4 F 52-79 18-20 101-132/41-67 95-99 GENERAL: The patient is awake, alert, and fully oriented, in no acute distress. HEAD: Normal with no signs of trauma. EYES: EOMI, no scleral icterus ENT: dry mucous membranes NECK: Trachea midline, full range of motion, supple. LUNGS: Breath sounds equal, clear to auscultation bilaterally, no wheezes, no crackles, no accessory muscle use. HEART: Regular rate and rhythm, S1, S2 without murmur, rub or gallop. ABDOMEN: Soft, nontender, nondistended, normoactive bowel sounds, no guarding, no rebound EXTREMITIES: 2+ pulses, warm, well-perfused, no edema. NEUROLOGICAL: Normal speech, gait not observed. PSYCH: Normal mood, normal affect SKIN: Warm, dry, normal turgor, no rashes or lesions noted Laboratory Results - last 24 hr 11/04/19 11/04/19 11/04/19 12:45 16:00 17:20 WBC RBC Hgb Hct MCV MCH MCHC RDW Plt Count MPV Absolute Neuts (auto) Neutrophils % Lymphocytes % Monocytes % Eosinophils % Basophils % Nucleated RBC % Sodium 140 Potassium 3.5 Chloride 105 Carbon Dioxide 23 Anion Gap 12 BUN 26.2 H Creatinine 2.0 H Est GFR (CKD-EPI)AfAm 37.53 Est GFR (CKD-EPI)NonAf 32.38 POC Glucometer Random Glucose 123 H Calcium 8.8 Phosphorus Magnesium Total Bilirubin 0.8 AST 26 ALT 14 Alkaline Phosphatase 54 Creatine Kinase 155 Creatine Kinase Index No Result Required. CK-MB (CK-2) < 1.0 Troponin I < 0.02 Total Protein 7.1 Albumin 3.3 L Lipase 95 Urine Color Yellow Urine Appearance Cloudy Urine pH 7.5 D Ur Specific [place] 1.019 Urine Protein Negative Urine Glucose (UA) Negative Urine Ketones Negative Urine Blood Negative Urine Nitrite Negative Urine Bilirubin Negative Urine Urobilinogen 0.2 Ur Leukocyte Esterase 2+ H Urine WBC (Auto) 27 Urine RBC (Auto) 2 Urine Casts (Auto) 7 U Epithel Cells (Auto) 0.3 Urine Bacteria (Auto) 7809.8 Ur Random Creatinine 298.0 H Ur Random Sodium 46 Ur Random Urea Nitrogn 11/04/19 11/04/19 11/05/19 17:20 22:25 06:41 WBC RBC Hgb Hct MCV MCH MCHC RDW Plt Count MPV Absolute Neuts (auto) Neutrophils % Lymphocytes % Monocytes % Eosinophils % Basophils % Nucleated RBC % Sodium Potassium Chloride Carbon Dioxide Anion Gap BUN Creatinine Est GFR (CKD-EPI)AfAm Est GFR (CKD-EPI)NonAf POC Glucometer 86 104 Random Glucose Calcium Phosphorus Magnesium Total Bilirubin AST ALT Alkaline Phosphatase Creatine Kinase Creatine Kinase Index CK-MB (CK-2) Troponin I Total Protein Albumin Lipase Urine Color Urine Appearance Urine pH Ur Specific [place] Urine Protein Urine Glucose (UA) Urine Ketones Urine Blood Urine Nitrite Urine Bilirubin Urine Urobilinogen Ur Leukocyte Esterase Urine WBC (Auto) Urine RBC (Auto) Urine Casts (Auto) U Epithel Cells (Auto) Urine Bacteria (Auto) Ur Random Creatinine Ur Random Sodium Ur Random Urea Nitrogn 725 11/05/19 11/05/19 11/05/19 08:00 08:00 11:53 WBC 7.7 RBC 4.20 Hgb 12.0 Hct 35.5 MCV 84.5 MCH 28.6 MCHC 33.8 RDW 14.3 Plt Count 134 D MPV 8.8 Absolute Neuts (auto) 5.9 Neutrophils % 77.1 D Lymphocytes % 13.7 D Monocytes % 8.8 Eosinophils % 0.2 D Basophils % 0.2 Nucleated RBC % 0 Sodium 141 Potassium 3.5 Chloride 110 H Carbon Dioxide 23 Anion Gap 8 BUN 23.7 H Creatinine 1.6 H Est GFR (CKD-EPI)AfAm 49.15 Est GFR (CKD-EPI)NonAf 42.41 POC Glucometer 114 Random Glucose 94 Calcium 7.7 L Phosphorus 2.3 L Magnesium 1.5 L Total Bilirubin 1.0 AST 28 ALT 9 L Alkaline Phosphatase 40 L Creatine Kinase Creatine Kinase Index CK-MB (CK-2) Troponin I Total Protein 6.0 L Albumin 2.6 L Lipase Urine Color Urine Appearance Urine pH Ur Specific [place] Urine Protein Urine Glucose (UA) Urine Ketones Urine Blood Urine Nitrite Urine Bilirubin Urine Urobilinogen Ur Leukocyte Esterase Urine WBC (Auto) Urine RBC (Auto) Urine Casts (Auto) U Epithel Cells (Auto) Urine Bacteria (Auto) Ur Random Creatinine Ur Random Sodium Ur Random Urea Nitrogn Active Medications Generic Name Dose Route Start Last Admin Trade Name Jenn PRN Reason Stop Dose Admin Carbidopa/Levodopa 1 each 11/04/19 22:00 11/05/19 14:26 Sinemet 25/100 - PO 1 each TID ROLLY Administration Heparin Sodium (Porcine) 5,000 unit 11/04/19 22:00 11/05/19 14:26 Heparin - SQ 5,000 unit TID ROLLY Administration Sodium Chloride 1,000 mls @ 60 mls/hr 11/04/19 17:30 11/04/19 22:33 Normal Saline - IV 60 mls/hr ASDIR ROLLY Administration Potassium Phosphate 15 mm/ 255 mls @ 42.5 mls/hr 11/05/19 17:00 Sodium Chloride IVPB 11/05/19 22:59 ONCE ONE Insulin Aspart 1 vial 11/04/19 22:00 11/05/19 11:55 Novolog Vial Sliding Scale - SQ Not Given [facility] Protocol Metoprolol Succinate 100 mg 11/05/19 10:00 11/05/19 09:36 Toprol Xl - PO 100 mg DAILY ROLLY Administration Pantoprazole Sodium 40 mg 11/05/19 10:00 11/05/19 09:36 Protonix - PO 40 mg DAILY ROLLY Administration Tamsulosin HCl 0.4 mg 11/05/19 08:30 11/05/19 09:36 Flomax - PO 0.4 mg DAILY@0830 ROLLY Administration ASSESSMENT/PLAN: 74 y/o/m with PMHx of BPH, HTN, DM, congential developmental delay presents to the ED with vague complaints of dizziness/nausea/decreased PO intake found to have an SANDEE. #SANDEE - likely 2/2 poor PO intake - Cr on arrival 2.0 (baseline 1.2), now improving, continue to monitor - IVF - renal/bladder US normal - nephro consulted - Dr. Rutherford - holding losartan #HTN - patient was hypotensive on arrival; responded well to fluids - holding ARB given SANDEE - holding beta baltazar and will re start when appropriate pending on BP - echo completed - LVEF 65% #DM - BGMS ACHS - ISS ACHS #Tremors - continue sinemet #FEN - NS@75mls/hr - monitor electrolytes - sodiumcontrolled diet #Prophylaxis - Heparin #Disposition - monitor for improvement of SANDEE Visit type - Emergency Visit Emergency Visit: Yes ED Registration Date: 11/04/19 Care time: The patient presented to the Emergency Department on the above date and was hospitalized for further evaluation of their emergent condition. - New Patient This patient is new to me today: Yes Date on this admission: 11/05/19 - Critical Care Critical Care patient: No ATTENDING PHYSICIAN STATEMENT I saw and evaluated the patient. I reviewed the resident's note and discussed the case with the resident. I agree with the resident's findings and plan as documented. SUBJECTIVE: OBJECTIVE: ASSESSMENT AND PLAN:
[2019-11-05] MEDS ORDERED: POTASSIUM PHOSPHATE 15 MM in SODIUM CHLORIDE 250 ML IVPB ONE (17:00)
[2019-11-05] MEDS: SODIUM CHLORIDE 1,000 ML IV SCH (17:35)
[2019-11-06] MEDS: HEPARIN NA (PORCINE) 5,000 UNITS/ML 1ML VIAL SQ SCH ×3 (06:49→21:38)
[2019-11-06] MEDS: CARBIDOPA/LEVODOPA 25/100 TABLET (FP) PO SCH ×3 (06:49→21:38)
[2019-11-06] MEDS: SODIUM CHLORIDE 1,000 ML IV SCH ×2 (06:49→21:36)
[2019-11-06] MEDS: INSULIN SLIDING SCALE (NOVOLOG) 1 VIAL SQ SCH ×4 (06:53→21:38)
[2019-11-06 09:14] LABS: BLOOD UREA NITROGEN 19.5 mg/dL (7-18); CALCIUM 7.6 mg/dL (8.5-10.1); CREATININE 1.3 mg/dL (0.55-1.3); POTASSIUM 3.6 mmol/L (3.5-5.1)
[2019-11-06] MEDS: PANTOPRAZOLE 40 MG TABLET PO SCH (09:42)
[2019-11-06] MEDS: TAMSULOSIN HCL 0.4 MG CAP PO SCH (09:42)
--- NOTE | 2019-11-06 10:26 | PN ---
Teaching Attending Note Name of Resident: Ryne Doe ATTENDING PHYSICIAN STATEMENT I saw and evaluated the patient. I reviewed the resident's note and discussed the case with the resident. I agree with the resident's findings and plan as documented. SUBJECTIVE: Feels well, no complaints. No abdominal pain/nausea/vomiting/dysuria. OBJECTIVE: Afebrile, Hemodynamically Stable. AAO x 1. Last Vital Signs Temp Pulse Resp BP Pulse Ox 97.6 F 58 L 18 101/56 L 95 11/05/19 14:54 11/05/19 14:54 11/05/19 14:54 11/05/19 14:54 11/05/19 09:00 Heart - S1, S2, RRR Lungs - clear to auscultation Abdomen - soft, non-tender. Bowel Sounds normal. Extremities - no edema, no calf tenderness. Laboratory Results - last 24 hr 11/05/19 11/05/19 11/05/19 11:53 17:31 21:17 Sodium Potassium Chloride Carbon Dioxide Anion Gap BUN Creatinine Est GFR (CKD-EPI)AfAm Est GFR (CKD-EPI)NonAf POC Glucometer 114 111 159 Random Glucose Calcium 11/06/19 11/06/19 06:47 08:20 Sodium 140 Potassium 3.6 Chloride 109 H Carbon Dioxide 25 Anion Gap 6 L BUN 19.5 H Creatinine 1.3 Est GFR (CKD-EPI)AfAm 63.18 Est GFR (CKD-EPI)NonAf 54.51 POC Glucometer 96 Random Glucose 98 Calcium 7.6 L Current Medications Generic Name Dose Route Start Last Admin Trade Name Freq PRN Reason Stop Dose Admin Carbidopa/Levodopa 1 each 11/04/19 22:00 11/06/19 06:49 Sinemet 25/100 - PO 1 each TID ROLLY Administration Heparin Sodium (Porcine) 5,000 unit 11/04/19 22:00 11/06/19 06:49 Heparin - SQ 5,000 unit TID ROLLY Administration Sodium Chloride 1,000 mls @ 60 mls/hr 11/04/19 17:30 11/06/19 06:49 Normal Saline - IV 60 mls/hr ASDIR ROLLY Administration Insulin Aspart 1 vial 11/04/19 22:00 11/06/19 06:53 Novolog Vial Sliding Scale - SQ Not Given ACHS ROLLY Protocol Metoprolol Succinate 100 mg 11/05/19 10:00 11/05/19 09:36 Toprol Xl - PO 100 mg DAILY ROLLY Administration Pantoprazole Sodium 40 mg 11/05/19 10:00 11/06/19 09:42 Protonix - PO 40 mg DAILY ROLLY Administration Tamsulosin HCl 0.4 mg 11/05/19 08:30 11/06/19 09:42 Flomax - PO 0.4 mg DAILY@0830 ROLLY Administration Home Medications Medication Instructions Recorded Carbidopa/Levodopa 1 each PO TID 11/04/19 [Carbidopa-Levodopa 25-100 Tab] RX: Losartan Potassium 100 mg PO HS 11/04/19 RX: Metoprolol Succinate 100 mg PO DAILY 11/04/19 RX: Omeprazole 40 mg PO DAILY 11/04/19 RX: Tamsulosin HCl 0.4 mg PO DAILY 11/04/19 metFORMIN HCL [Metformin HCl] 500 mg DAILY 11/05/19 ASSESSMENT AND PLAN: 74 year old male with BPH, HTN, DM 2, cognitive impairment, admitted with SANDEE. 1. SANDEE, likely pre-renal, ?sec to NSAID use +/- UTI Renal/Bladder US negative Renal function improving with IV hydration Urine Cx pos for NLFGNB > 100,000 CFU/ml Will start Ceftriaxone empirically Nephrology following Urology referral as out-patient. 2. HTN - ARB held due to SANDEE. Continue Metoprolol. 3. DM 2 - Metformin held. continue Novolog sliding scale. 4. Parkinson's Disease - continue Sinemet. 5. BPH - continue Flomax. 6. Hypomagnesemia/Hypophosphatemia - repleted. DVT Px - Heparin SQ.
--- NOTE | 2019-11-06 10:36 | PN ---
Physical Exam: SUBJECTIVE: Patient seen and examined. Denies any pain with urination. Denies chest pain, abd pain, or other concerns. OBJECTIVE: Vital Signs Period Temp Pulse Resp BP Sys/Lindsay Pulse Ox Last 24 Hr 97.2 F-98.5 F 52-63 18-18 101-134/56-83 98 GENERAL: The patient is awake, alert, in no acute distress. HEAD: Normal with no signs of trauma. EYES: EOMI, no scleral icterus ENT: dry mucous membranes NECK: Trachea midline, full range of motion, supple. LUNGS: Breath sounds equal, clear to auscultation bilaterally, no wheezes, no crackles, no accessory muscle use. HEART: RRR, no murmur noted ABDOMEN: Soft, nontender, nondistended, normoactive bowel sounds, no guarding, no rebound EXTREMITIES: 2+ pulses, warm, well-perfused, no edema. NEUROLOGICAL: Normal speech, gait not observed. PSYCH: Normal mood, normal affect SKIN: Warm, dry, normal turgor, no rashes or lesions noted Laboratory Results - last 24 hr 11/05/19 11/05/19 11/05/19 11:53 17:31 21:17 Sodium Potassium Chloride Carbon Dioxide Anion Gap BUN Creatinine Est GFR (CKD-EPI)AfAm Est GFR (CKD-EPI)NonAf POC Glucometer 114 111 159 Random Glucose Calcium 11/06/19 11/06/19 06:47 08:20 Sodium 140 Potassium 3.6 Chloride 109 H Carbon Dioxide 25 Anion Gap 6 L BUN 19.5 H Creatinine 1.3 Est GFR (CKD-EPI)AfAm 63.18 Est GFR (CKD-EPI)NonAf 54.51 POC Glucometer 96 Random Glucose 98 Calcium 7.6 L Active Medications Generic Name Dose Route Start Last Admin Trade Name Freq PRN Reason Stop Dose Admin Carbidopa/Levodopa 1 each 11/04/19 22:00 11/06/19 06:49 Sinemet 25/100 - PO 1 each TID ROLLY Administration Heparin Sodium (Porcine) 5,000 unit 11/04/19 22:00 11/06/19 06:49 Heparin - SQ 5,000 unit TID ROLLY Administration Sodium Chloride 1,000 mls @ 60 mls/hr 11/04/19 17:30 11/06/19 06:49 Normal Saline - IV 60 mls/hr ASDIR ROLLY Administration Ceftriaxone Sodium 1 gm/ 50 mls @ 200 mls/hr 11/06/19 10:30 Dextrose IVPB DAILY [facility] Protocol Insulin Aspart 1 vial 11/04/19 22:00 11/06/19 06:53 Novolog Vial Sliding Scale - SQ Not Given ACHS [facility] Protocol Metoprolol Succinate 100 mg 11/05/19 10:00 11/05/19 09:36 Toprol Xl - PO 100 mg DAILY ROLLY Administration Pantoprazole Sodium 40 mg 11/05/19 10:00 11/06/19 09:42 Protonix - PO 40 mg DAILY ROLLY Administration Tamsulosin HCl 0.4 mg 11/05/19 08:30 11/06/19 09:42 Flomax - PO 0.4 mg DAILY@0830 ROLLY Administration ASSESSMENT/PLAN: 74 y/o/m with PMHx of BPH, HTN, DM, congential developmental delay presents to the ED with vague complaints of dizziness/nausea/decreased PO intake found to have an SANDEE. #SANDEE - resolved - likely 2/2 poor PO intake - Cr on arrival 2.0 (baseline 1.2), now back to normal - renal/bladder US normal - nephro consulted - Dr. Rutherford - EVF discontinued, encourage PO hydration #UTI - UA positive for 2+ leuk esterase - Urine Cx positive for non lactose fermenting GNB >100,000 CFU - Started on Ceftriaxone 1g QD - pending sensitivities #HTN - patient was hypotensive on arrival; responded well to fluids - restarted Losartan as kidney function has now improved - holding beta baltazar and will re start when appropriate pending on BP - echo completed - LVEF 65% #DM - BGMS ACHS - ISS ACHS #Tremors - continue sinemet #FEN - IVF discontinued, encourage PO hydration - monitor electrolytes - sodium controlled diet - mag and phosphorus repleted #Prophylaxis - Heparin #Disposition - SANDEE improved, started treatment for UTI, pending sensitivities Visit type - Emergency Visit Emergency Visit: Yes ED Registration Date: 11/04/19 Care time: The patient presented to the Emergency Department on the above date and was hospitalized for further evaluation of their emergent condition. - New Patient This patient is new to me today: No - Critical Care Critical Care patient: No ATTENDING PHYSICIAN STATEMENT I saw and evaluated the patient. I reviewed the resident's note and discussed the case with the resident. I agree with the resident's findings and plan as documented. SUBJECTIVE: OBJECTIVE: ASSESSMENT AND PLAN:
[2019-11-06] MEDS ORDERED: cefTRIAXone SODIUM 1 GM VIAL ONE (10:51)
[2019-11-06] MEDS ORDERED: DEXTROSE 5%-WATER - 50 ML IVPB ONE (10:51)
[2019-11-06] MEDS: CEFTRIAXONE 1 GM in DEXTROSE 5%-WATER - 50 ML IVPB SCH (10:54)
[2019-11-06 11:27] LABS: MAGNESIUM 1.6 mg/dL (1.8-2.4); PHOSPHOROUS 2.1 mg/dL (2.5-4.9)
[2019-11-06] MEDS ORDERED: MAGNESIUM SULFATE IN WATER 2 GM/50 ML IVPB IVPB ONE (12:46)
[2019-11-06] MEDS ORDERED: NAPH,MB-DB/K PH,MBDB POWDER PACKET PO ONE (13:00)
[2019-11-06] MEDS ORDERED: POTASSIUM PHOSPHATE 30 MM in SODIUM CHLORIDE 250 ML IVPB ONE (16:30)
--- NOTE | 2019-11-06 17:35 | PN ---
Progress Note, Physician History of Present Illness: Pt seen and examined at bedside. He is awake and appears comfortable. - Current Medication List Current Medications: Active Medications Carbidopa/Levodopa (Sinemet 25/100 -) 1 each PO TID [facility] Last Admin: 11/06/19 14:33 Dose: 1 each Documented by: Heparin Sodium (Porcine) (Heparin -) 5,000 unit SQ TID [facility] Last Admin: 11/06/19 14:33 Dose: 5,000 unit Documented by: Sodium Chloride (Normal Saline -) 1,000 mls @ 60 mls/hr IV ASDIR [facility] Last Admin: 11/06/19 06:49 Dose: 60 mls/hr Documented by: Ceftriaxone Sodium 1 gm/ (Dextrose) 50 mls @ 200 mls/hr IVPB DAILY [facility]; Protocol Last Admin: 11/06/19 10:54 Dose: 200 mls/hr Documented by: Potassium Phosphate 30 mm/ (Sodium Chloride) 260 mls @ 32.5 mls/hr IVPB ONCE ONE Stop: 11/07/19 00:29 Insulin Aspart (Novolog Vial Sliding Scale -) 1 vial SQ ACHS [facility]; Protocol Last Admin: 11/06/19 16:56 Dose: Not Given Documented by: Losartan Potassium (Cozaar -) 100 mg PO [facility] Metoprolol Succinate (Toprol Xl -) 100 mg PO DAILY [facility] Last Admin: 11/05/19 09:36 Dose: 100 mg Documented by: Pantoprazole Sodium (Protonix -) 40 mg PO DAILY [facility] Last Admin: 11/06/19 09:42 Dose: 40 mg Documented by: Tamsulosin HCl (Flomax -) 0.4 mg PO DAILY@0830 [facility] Last Admin: 11/06/19 09:42 Dose: 0.4 mg Documented by: - Objective Vital Signs: Vital Signs Temperature 97.9 F 11/06/19 14:00 Pulse Rate 58 L 11/06/19 14:00 Respiratory Rate 18 11/06/19 14:00 Blood Pressure 125/65 11/06/19 14:00 O2 Sat by Pulse Oximetry (%) 98 11/06/19 09:00 Constitutional: Yes: Calm Eyes: Yes: Conjunctiva Clear HENT: Yes: Atraumatic Neck: Yes: Supple Cardiovascular: Yes: S1, S2 Respiratory: Yes: CTA Bilaterally Gastrointestinal: Yes: Soft Genitourinary: Yes: WNL Musculoskeletal: Yes: WNL Edema: No Neurological: Yes: Oriented Psychiatric: Yes: Oriented Labs: CBC, BMP 11/05/19 08:00 11/06/19 08:20 Problem List - Problems (1) SANDEE (acute kidney injury) Code(s): N17.9 - ACUTE KIDNEY FAILURE, UNSPECIFIED (2) Nausea and vomiting Code(s): R11.2 - NAUSEA WITH VOMITING, UNSPECIFIED Qualifiers: Vomiting type: unspecified Vomiting Intractability: non-intractable Qualified Code(s): R11.2 - Nausea with vomiting, unspecified Assessment/Plan Current Medications Generic Name Dose Route Start Last Admin Trade Name Freq PRN Reason Stop Dose Admin Carbidopa/Levodopa 1 each 11/04/19 22:00 11/06/19 14:33 Sinemet 25/100 - PO 1 each TID ROLLY Administration Heparin Sodium (Porcine) 5,000 unit 11/04/19 22:00 11/06/19 14:33 Heparin - SQ 5,000 unit TID ROLLY Administration Sodium Chloride 1,000 mls @ 60 mls/hr 11/04/19 17:30 11/06/19 06:49 Normal Saline - IV 60 mls/hr ASDIR ROLLY Administration Ceftriaxone Sodium 1 gm/ 50 mls @ 200 mls/hr 11/06/19 10:30 11/06/19 10:54 Dextrose IVPB 200 mls/hr DAILY [facility] Administration Protocol Potassium Phosphate 30 mm/ 260 mls @ 32.5 mls/hr 11/06/19 16:30 Sodium Chloride IVPB 11/07/19 00:29 ONCE ONE Insulin Aspart 1 vial 11/04/19 22:00 11/06/19 16:56 Novolog Vial Sliding Scale - SQ Not Given ACHS [facility] Protocol Losartan Potassium 100 mg 11/06/19 22:00 Cozaar - PO HS ROLLY Metoprolol Succinate 100 mg 11/05/19 10:00 11/05/19 09:36 Toprol Xl - PO 100 mg DAILY [facility] Administration Pantoprazole Sodium 40 mg 11/05/19 10:00 11/06/19 09:42 Protonix - PO 40 mg DAILY [facility] Administration Tamsulosin HCl 0.4 mg 11/05/19 08:30 11/06/19 09:42 Flomax - PO 0.4 mg DAILY@0830 ROLLY Administration Impression 1. SANDEE 2. DM 3. dehydration 4. htn 5. bph Plan - renal function is improving - replace lytes - can resume metformin - decrease losartan dose to 50 mg as bp is borderline
[2019-11-06] MEDS ORDERED: LOSARTAN POTASSIUM 50 MG TABLET (FP) PO SCH ×2 (22:00)
[2019-11-07] MEDS: SODIUM CHLORIDE 1,000 ML IV SCH (02:00)
[2019-11-07] MEDS: HEPARIN NA (PORCINE) 5,000 UNITS/ML 1ML VIAL SQ SCH ×2 (06:35→13:33)
[2019-11-07] MEDS: CARBIDOPA/LEVODOPA 25/100 TABLET (FP) PO SCH ×2 (06:35→13:33)
[2019-11-07] MEDS: INSULIN SLIDING SCALE (NOVOLOG) 1 VIAL SQ SCH ×2 (06:35→11:17)
[2019-11-07] MEDS ORDERED: DEXTROSE 5%-WATER - 50 ML IVPB ONE (10:02)
[2019-11-07] MEDS ORDERED: cefTRIAXone SODIUM 1 GM VIAL ONE (10:02)
[2019-11-07] MEDS: CEFTRIAXONE 1 GM in DEXTROSE 5%-WATER - 50 ML IVPB SCH (10:07)
[2019-11-07] MEDS: PANTOPRAZOLE 40 MG TABLET PO SCH (10:08)
[2019-11-07] MEDS: TAMSULOSIN HCL 0.4 MG CAP PO SCH (10:11)
[2019-11-07 11:44] LABS: BLOOD UREA NITROGEN 11.6 mg/dL (7-18); CALCIUM 8.2 mg/dL (8.5-10.1); CREATININE 1.2 mg/dL (0.55-1.3); PHOSPHOROUS 2.5 mg/dL (2.5-4.9); POTASSIUM 4.1 mmol/L (3.5-5.1)
--- NOTE | 2019-11-07 14:35 | PN ---
Teaching Attending Note Name of Resident: Ryne Doe ATTENDING PHYSICIAN STATEMENT I saw and evaluated the patient. I reviewed the resident's note and discussed the case with the resident. I agree with the resident's findings and plan as documented. SUBJECTIVE: Feels well, no complaints. No abdominal pain/nausea/vomiting/dysuria. OBJECTIVE: Afebrile, Hemodynamically Stable. AAO x 1. Last Vital Signs Temp Pulse Resp BP Pulse Ox 98.1 F 57 L 20 139/71 98 11/07/19 09:06 11/07/19 09:06 11/07/19 09:06 11/07/19 09:06 11/07/19 09:00 Heart - S1, S2, RRR Lungs - clear to auscultation Abdomen - soft, non-tender. Bowel Sounds normal. Extremities - no edema, no calf tenderness. Laboratory Results - last 24 hr 11/06/19 11/06/19 11/07/19 16:54 21:10 06:34 Sodium Potassium Chloride Carbon Dioxide Anion Gap BUN Creatinine Est GFR (CKD-EPI)AfAm Est GFR (CKD-EPI)NonAf POC Glucometer 134 202 99 Random Glucose Calcium Phosphorus Magnesium 11/07/19 11/07/19 10:29 11:16 Sodium 137 Potassium 4.1 Chloride 104 Carbon Dioxide 23 Anion Gap 10 BUN 11.6 Creatinine 1.2 Est GFR (CKD-EPI)AfAm 69.60 Est GFR (CKD-EPI)NonAf 60.05 POC Glucometer 131 Random Glucose 133 H Calcium 8.2 L Phosphorus 2.5 Magnesium 2.0 Current Medications Generic Name Dose Route Start Last Admin Trade Name Freq PRN Reason Stop Dose Admin Carbidopa/Levodopa 1 each 11/04/19 22:00 11/07/19 13:33 Sinemet 25/100 - PO 1 each TID ROLLY Administration Heparin Sodium (Porcine) 5,000 unit 11/04/19 22:00 11/07/19 13:33 Heparin - SQ 5,000 unit TID ROLLY Administration Sodium Chloride 1,000 mls @ 60 mls/hr 11/04/19 17:30 11/07/19 02:00 Normal Saline - IV 60 mls/hr ASDIR ROLLY Administration Ceftriaxone Sodium 1 gm/ 50 mls @ 200 mls/hr 11/06/19 10:30 11/07/19 10:07 Dextrose IVPB 200 mls/hr DAILY [facility] Administration Protocol Insulin Aspart 1 vial 11/04/19 22:00 11/07/19 11:17 Novolog Vial Sliding Scale - SQ Not Given ACHS [facility] Protocol Losartan Potassium 50 mg 11/06/19 22:00 11/06/19 21:39 Cozaar - PO 50 mg HS ROLLY Administration Metoprolol Succinate 100 mg 11/05/19 10:00 11/07/19 10:08 Toprol Xl - PO 100 mg DAILY [facility] Administration Pantoprazole Sodium 40 mg 11/05/19 10:00 11/07/19 10:08 Protonix - PO 40 mg DAILY RO[facility] Administration Tamsulosin HCl 0.4 mg 11/05/19 08:30 11/07/19 10:11 Flomax - PO 0.4 mg DAILY@0830 [facility] Administration Home Medications Medication Instructions Recorded Carbidopa/Levodopa 1 each PO TID 11/04/19 [Carbidopa-Levodopa 25-100 Tab] Losartan Potassium 100 mg PO HS 11/04/19 Metoprolol Succinate 100 mg PO DAILY 11/04/19 Omeprazole 40 mg PO DAILY 11/04/19 Tamsulosin HCl 0.4 mg PO DAILY 11/04/19 metFORMIN HCL [Metformin HCl] 500 mg DAILY 11/05/19 ASSESSMENT AND PLAN: 74 year old male with BPH, HTN, DM 2, cognitive impairment, admitted with SANDEE. 1. SANDEE, likely pre-renal, ?sec to NSAID use + UTI Renal/Bladder US negative Renal function improved with IV hydration Urine Cx pos for EColi > 100,000 CFU/ml Treated with IV Ceftriaxone - will be discharged on Vantin for total 7 days of Abx. Nephrology following Urology referral as out-patient. 2. HTN - Resumed on Losarten, Metoprolol. 3. DM 2 - resume Metformin on discharge. 4. Parkinson's Disease - continue Sinemet. 5. BPH - continue Flomax. 6. Hypomagnesemia/Hypophosphatemia - resolved s/p repletion. Medically optimized for discharge.
[2019-11-07 15:53] VITALS: BP 115/60; PULSE 49; TEMP 97.7
--- NOTE | 2019-11-07 16:42 | DS ---
Physical Exam: SUBJECTIVE: Patient seen and examined. No acute events overnight. Patient without complaints this morning. OBJECTIVE: Vital Signs Period Temp Pulse Resp BP Sys/Lindsay Pulse Ox Last 24 Hr 97.5 F-98.4 F 49-58 18-20 115-139/60-81 98-98 PHYSICAL EXAM GENERAL: The patient is awake, alert, in no acute distress. HEAD: Normal with no signs of trauma. EYES: EOMI, no scleral icterus ENT: dry mucous membranes NECK: Trachea midline, full range of motion, supple. LUNGS: Breath sounds equal, clear to auscultation bilaterally, no wheezes, no crackles, no accessory muscle use. HEART: RRR, no murmur noted ABDOMEN: Soft, nontender, nondistended, normoactive bowel sounds, no guarding, no rebound EXTREMITIES: 2+ pulses, warm, well-perfused, no edema. NEUROLOGICAL: Normal speech, gait not observed. PSYCH: Normal mood, normal affect SKIN: Warm, dry, normal turgor, no rashes or lesions noted LABS Laboratory Results - last 24 hr 11/06/19 11/06/19 11/07/19 16:54 21:10 06:34 Sodium Potassium Chloride Carbon Dioxide Anion Gap BUN Creatinine Est GFR (CKD-EPI)AfAm Est GFR (CKD-EPI)NonAf POC Glucometer 134 202 99 Random Glucose Calcium Phosphorus Magnesium 11/07/19 11/07/19 10:29 11:16 Sodium 137 Potassium 4.1 Chloride 104 Carbon Dioxide 23 Anion Gap 10 BUN 11.6 Creatinine 1.2 Est GFR (CKD-EPI)AfAm 69.60 Est GFR (CKD-EPI)NonAf 60.05 POC Glucometer 131 Random Glucose 133 H Calcium 8.2 L Phosphorus 2.5 Magnesium 2.0 HOSPITAL COURSE: Date of Admission:11/04/19 Date of Discharge: 11/07/19 74 y/o/m with PMHx of BPH, HTN, DM, congential developmental delay presents to the ED with vague complaints of dizziness/nausea/decreased PO intake found to have an SANDEE. SANDEE improved with IV hydration. Patient was seen by Nephrology and will follow up with Nephrology outpatient. Renal/bladder U/S was completed and did not show any significant abnormalities. Patient was found to be positive for UTI on urine culture and was started on antibiotics and will be discharged on Vantin. Patient's Losartan was decreased to 50mg while admitted. Echo was completed and LVEF was 65%. Patient was stable for discharge home at this time. Recommended to follow up with Urology and Nephrology after discharge. Minutes to complete discharge: 36 Discharge Summary Problems reviewed: Yes Reason For Visit: ACUTE KIDNEY INJURY; NAUSEA; VOMITING Current Active Problems SANDEE (acute kidney injury) (Acute) Nausea and vomiting (Acute) Condition: Stable - Instructions Diet, Activity, Other Instructions: You presented to the hospital due dizziness, vomiting, and poor appetite. You were found to have acute kidney injury and were treated with IV fluids with improvement. An ultrasound of your kidneys and bladder did not show any abnormalities. Your urine was found to be positive for a UTI and you were started on antibiotics for treatment. Please follow up with nephrology and urology after discharge. Medication Changes: 1. START Vantin 200mg twice a day for 5 more days. 2. We decreased your Losartan dose to 50mg daily. Please continue to take this dose. Follow up with the following physicians: 1. Please follow up with your primary care provider within one week of discharge for further management of your medical conditions and the medications that were started at this time. 2. Please follow up with Dr. Rutherford, Nephrology, within two weeks of discharge. 3. Please follow up with Dr. Segundo, Urology, within one week of discharge. Activity and Diet 1. Please monitor your diet as you need to intake foods with less salt, sugar and continue to drink plenty of fluids. Continue all your other medications as prescribed Please return to the ER if you have any signs or symptoms of chest pain, domenico rtness of breath, uncontrollable fever, chills, nausea, vomiting, numbness, tingling, or weakness in any part of your body, changes in vision, or slurred speech. Please return to the ER if symptoms persist, worsen, or new symptoms arise. Referrals: Violet Rutherford MD [Staff Physician] - 2 Weeks Vicente Segundo MD [Staff Physician] - 1 Week Disposition: HOME - Home Medications Comprehensive Discharge Medication List: Ambulatory Orders Carbidopa/Levodopa [Carbidopa-Levodopa 25-100 Tab] 1 each PO TID 11/04/19 Metoprolol Succinate 100 mg PO DAILY 11/04/19 Omeprazole 40 mg PO DAILY 03/10/20 Tamsulosin HCl 0.4 mg PO DAILY 11/04/19 metFORMIN HCL [Metformin HCl] 500 mg DAILY 11/05/19 Cefpodoxime Proxetil [Vantin -] 200 mg PO Q12H 5 Days #10 tablet 11/07/19 Losartan Potassium [Cozaar -] 50 mg PO HS #30 tablet 11/07/19 This patient is new to me today: No Emergency Visit: Yes ED Registration Date: 11/04/19 Care time: The patient presented to the Emergency Department on the above date and was hospitalized for further evaluation of their emergent condition. Critical Care patient: No - Discharge Referral Referred to [facility] Med [facility] No ATTENDING PHYSICIAN STATEMENT I saw and evaluated the patient. I reviewed the resident's note and discussed the case with the resident. I agree with the resident's findings and plan as documented. SUBJECTIVE: OBJECTIVE: ASSESSMENT AND PLAN:
--- NOTE | 2019-11-07 17:06 | PN ---
Progress Note, Physician History of Present Illness: Pt seen and examined at bedside. He is awake and appears comfortable. He denies shortness of breath. - Objective Vital Signs: Vital Signs Temperature 97.7 F 11/07/19 14:00 Pulse Rate 49 L 11/07/19 14:00 Respiratory Rate 11/07/19 14:00 Blood Pressure 115/60 11/07/19 14:00 O2 Sat by Pulse Oximetry (%) 98 11/07/19 09:00 Constitutional: Yes: Calm Eyes: Yes: Conjunctiva Clear HENT: Yes: Atraumatic Cardiovascular: Yes: S1, S2 Respiratory: Yes: CTA Bilaterally Gastrointestinal: Yes: Normal Bowel Sounds, Soft Genitourinary: Yes: WNL Musculoskeletal: Yes: WNL Edema: No Integumentary: Yes: WNL Neurological: Yes: Oriented Psychiatric: Yes: Oriented Labs: CBC, BMP 11/05/19 08:00 11/07/19 10:29 Problem List - Problems (1) SANDEE (acute kidney injury) Code(s): N17.9 - ACUTE KIDNEY FAILURE, UNSPECIFIED (2) Nausea and vomiting Code(s): R11.2 - NAUSEA WITH VOMITING, UNSPECIFIED Qualifiers: Vomiting type: unspecified Vomiting Intractability: non-intractable Qualified Code(s): R11.2 - Nausea with vomiting, unspecified Assessment/Plan Impression 1. SANDEE 2. DM 3. dehydration 4. htn 5. bph Plan - renal function stabilizing - will need outpt follow up - losartan at lower dose - urine clear today - discussed with sister
== END 2019-11-07 16:55 | disposition home or self-care (01) | DRG 683 ==
LOC: JER 10:56 → JERBED 15:55 → J5S 21:10
DX: N17.9 Acute kidney failure, unspecified (principal); N39.0 Urinary tract infection, site not specified; E11.65 Type 2 diabetes mellitus with hyperglycemia; I95.9 Hypotension, unspecified; G20 Parkinson's disease; E86.0 Dehydration; N40.0 Benign prostatic hyperplasia without lower urinary tract symptoms; I10 Essential (primary) hypertension; E83.42 Hypomagnesemia; R62.50 Unspecified lack of expected normal physiological development in childhood; E83.39 Other disorders of phosphorus metabolism; R11.2 Nausea with vomiting, unspecified; F17.210 Nicotine dependence, cigarettes, uncomplicated; G25.0 Essential tremor; K21.9 Gastro-esophageal reflux disease without esophagitis; Z79.84 Long term (current) use of oral hypoglycemic drugs; B96.20 Unspecified Escherichia coli [E. coli] as the cause of diseases classified elsewhere
CPT/HCPCS: 36415; 71045-TC-FY; 76775-TC; 80048; 80053; 81003; 82550; 82553; 82565; 82962; 83690; 83735; 84100; 84300; 84484; 84540; 85025; 87086; 87186; 93005; 93010; 93306-TC; 97116-GP; 97161-GP; 99285-25; J1644; J7030

== ENCOUNTER 2020-05-07 12:48 | Day surgery (SDC) | payer OTHER ==
[2020-05-06 17:26] VITALS: BMI 33.9
--- NOTE | 2020-05-07 12:46 | OP ---
Operative Note - Note: Operative Date: 05/07/20 Pre-Operative Diagnosis: BPH WITH LUTS, ^PVR Operation: TURP/TUVP Findings: TRILOBAR PROSTATE HYPERTROPHY AND TRABECULATED BLADDER Post-Operative Diagnosis: Same as Pre-op Surgeon: Vicente Segundo Anesthesia: Spinal Specimens Removed: URINE, PROSTATE CHIPS Estimated Blood Loss (mls): 0 Instrument used (Debridements only): 0 Drains & Tubes with Location: [id number] 3-WAY DENNY WITH CBI Drains, Volume Out (mls): 0 Blood Volume Replaced (mls): 0 Fluid Volume Replaced (mls): 0 Operative Report Dictated: Yes
[~2020-05-07 12:48] MED LIST: DEXAMETHASONE SOD PHOSPHATE 4 MG/1 ML VIAL ONE; GENTAMICIN SO4 80 MG/2 ML VIAL ONE; GLYCOPYRROLATE 0.2 MG/1 ML VIAL ONE; LIDOCAINE HCL/PF 2% SDV 5ML VIAL ONE; MIDAZOLAM HCL 2 MG/2 ML SINGLE DOSE VIAL ONE; PROPOFOL 20 ML ONE; ceFAZolin SODIUM 1 GM VIAL IVPB ONE; ceFAZolin SODIUM 1 GM VIAL ONE
[2020-05-07] MEDS ORDERED: HYDROmorphone HCL CARPU-JECT 2 MG/1 ML DISP.SYRIN IM ONE (12:50)
[2020-05-07] MEDS ORDERED: ACETAMINOPHEN 325 MG TABLET (FP) PO PRN (12:50)
[2020-05-07] MEDS ORDERED: ONDANSETRON 4 MG/2 ML VIAL IVPUSH PRN (13:09)
[2020-05-07] MEDS ORDERED: LACTATED RINGERS SOLUTION 1,000 ML IV SCH (13:15)
[2020-05-07] MEDS ORDERED: metFORMIN HCL 500 MG TABLET (FP) PO ONE (15:35)
--- NOTE | 2020-05-07 17:38 | CONS ---
DATE OF CONSULTATION: 05/07/2020 HISTORY OF PRESENT ILLNESS: Patient is a 78-year-old male with history of prostatism including nocturia x3, frequency, hesitancy, weak stream, and terminal dribbling. He is status post cystoscopy and a bladder biopsy which was benign. He does have history of Parkinson disease, diabetes, high blood pressure, and dyslipidemia. He denies any allergies, ethanolism, or tobacco. Presently the patient is on Flomax, losartan, metoprolol, metformin, and carbidopa. His prostate is 2+ smooth. Urodynamics revealed a bladder capacity of 649. Patients BUN and creatinine are 11.6 over 1.2. IMPRESSION AT PRESENT: Prostatism with lower urinary tract symptoms. PLAN: Will recommend cystoscopy and transurethral resection of prostate. This was explained to the patient and the patients sister and they both agree. JOELLE GALVAN M.D. [id number]
[2020-05-07] MEDS: CARBIDOPA/LEVODOPA 25/100 TABLET (FP) PO SCH (21:48)
[2020-05-08] MEDS: CARBIDOPA/LEVODOPA 25/100 TABLET (FP) PO SCH (06:27)
[2020-05-08 08:30] VITALS: BP 132/67; PULSE 60; TEMP 98.4
--- NOTE | 2020-05-08 11:50 | OP ---
DATE OF OPERATION: 05/07/2020 PREOPERATIVE DIAGNOSIS: Obstructive uropathy, frequency, urgency, increased postvoid residual. PROCEDURE: Cystourethroscopy, transurethral resection, and transurethral vaporization of the prostate. ANESTHESIA: Spinal. DESCRIPTION OF PROCEDURE: Under above-stated anesthesia, patient is prepped and draped in the usual sterile manner. He is placed in the dorsal lithotomy position. Cystoscopy revealed trilobar hypertrophy of the prostate. There was lateral lobe kissing. There was a high median lobe. The bladder was entered and 200 mL of residual urine was drained. There was a grade 2-3 trabeculation of the bladder. The dome and the lateral galvan were clear. Ureteral orifices were within normal position with efflux of clear urine. Bipolar resectoscope was inserted. Resection of the prostate was commenced in the usual fashion. Prostate chips were evacuated with an Cohealo evacuator. Hemostasis was secured with electrocoagulation. The bipolar plasma button was then introduced and excess tissue was vaporized. No active bleeding was noted. The scope was removed. A 24-F 3-way 30-mL Peterson was inserted. This was connected to continuous bladder irrigation. The patient tolerated the procedure well. He returned to the recovery room in good condition. Stacie [id number]
--- NOTE | 2020-05-13 08:06 | PATH ---
Surgical Pathology Report Patient Name: JOEY LION [facility]. Rec. #: [id number] /Age/Gender: 1945 (Age: 75) / M Account: [id number] Location: AMBULATORY SURG Taken: 05/07/2020 Received: 05/07/2020 Reported: 05/13/2020 Physicians: Vicente Segundo M.D. Specimen(s) Received PROSTATE SHAVINGS Clinical History Benign prostate hyperplasia with lower urinary tract Final Diagnosis PROSTATE SHAVINGS, TRANSURETHRAL RESECTION OF PROSTATE: BENIGN PROSTATIC TISSUE WITH PATCHY CHRONIC INFLAMMATION, ACINAR ATROPHY, CYSTIC CHANGES, GLANDULAR AND STROMAL HYPERPLASIA. Electronically Signed By Crystal Holbrook M.D. Gross Description Received in formalin labeled "prostate shavings," is a 5 g, 5.0 x 4.8 x 0.5 cm aggregate of miramontes, firm to rubbery portions of tissue, consistent with prostate chips. The specimen is entirely submitted in 4 cassettes. /05/07/2020 saudi05/07/2020
--- NOTE | 2020-05-13 15:51 | PATH ---
Cytology Non-Gynecological Report Patient Name: JOEY LION [facility]. Rec. #: [id number] /Age/Gender: 1945 (Age: 75) / M Account: [id number] Location: AMBULATORY SURG Taken: 05/10/2020 Received: 05/10/2020 Reported: 05/13/2020 Physicians: Vicente Segundo M.D. Specimen(s) Received URINE Clinical History Benign prostatic hypertrophy Final Diagnosis URINE FOR CYTOLOGY: SATISFACTORY FOR EVALUATION. NEGATIVE FOR HIGH GRADE UROTHELIAL CARCINOMA. UROTHELIAL FRAGMENTS, RED BLOOD CELLS, LYMPHOCYTES AND RARE NEUTROPHILS PRESENT. Comment: Urothelial fragments are suggestive of prior instrumentation, lithiasis, or a low grade papillary neoplasm. Suggest clinical/radiologic correlation. Also see can core and pathology report [id number]. Electronically Signed Rolando Montes M.D. Gross Description Approximately 45cc of pink fluid received fresh. One cytospin prepared.
== END 2020-05-08 13:00 | disposition home or self-care (01) ==
LOC: JASUSAT 12:48 → J6S 17:16 → JASUSAT 05-08 13:00
PROVIDERS: ATTEND Urology
PROC: 0V507ZZ Destruction of Prostate, Via Natural or Artificial Opening (ICD-10-PCS; principal; 2020-05-07 10:00)
PROC: 0VT08ZZ Resection of Prostate, Via Natural or Artificial Opening Endoscopic (ICD-10-PCS; 2020-05-07 10:00)
DX: N13.8 Other obstructive and reflux uropathy (principal); R35.0 Frequency of micturition; R39.15 Urgency of urination; N39.43 Post-void dribbling
CPT/HCPCS: 82962; 87086; 88108; 88305-TC; 94010; 94760

== ENCOUNTER 2023-09-30 15:30 | Emergency (ER) | payer OTHER ==
[2023-09-30 16:04] VITALS: BP 144/79; PULSE 76; RESP 18; TEMP 98.2; BMI 29.5
== END 2023-09-30 16:24 | disposition home or self-care (01) ==
LOC: FER 15:30
DX: H92.02 Otalgia, left ear (principal); H61.23 Impacted cerumen, bilateral
CPT/HCPCS: 82962; 99283-25

== ENCOUNTER 2024-03-15 13:51 | Emergency (ER) | payer OTHER ==
[2024-03-15 14:00] VITALS: TEMP 98.2; BMI 31.0
[2024-03-15 16:10] LABS: EPI CELLS 2 /uL (0-25.1); HYALINE CASTS 2 /uL (0-3.1); URINE APPEARANCE CLEAR; URINE BACTERIA >9,000 /uL (0-1359); URINE BILIRUBIN NEGATIVE (NEGATIVE); URINE COLOR YELLOW; URINE GLUCOSE (UA) 3+ (NEGATIVE); URINE KETONE NEGATIVE (NEGATIVE); URINE LEUK ESTERASE 2+ (NEGATIVE); URINE NITRITE POSITIVE (NEGATIVE); URINE PROTEIN NEGATIVE (NEGATIVE); URINE RBC 26 /uL (0-23.9); URINE UROBILINOGEN 0.2 mg/dL (0.2-1.0); URINE WBC 690 /uL (0-25.8)
[2024-03-15] MEDS ORDERED: CLOTRIMAZOLE 1% CREAM TP ONE (16:18)
[2024-03-15 17:23] VITALS: BP 126/78; PULSE 70; RESP 14
[2024-03-15] MEDS ORDERED: CEFPODOXIME PROXETIL 100 MG TABLET PO ONE (18:00)
== END 2024-03-15 17:24 | disposition home or self-care (01) ==
LOC: JER 13:51
DX: N39.0 Urinary tract infection, site not specified (principal); N48.1 Balanitis
CPT/HCPCS: 81003; 87086; 87186; 99283-25

== ENCOUNTER 2024-05-24 12:15 | Emergency (ER) | payer OTHER ==
[2024-05-24] MEDS ORDERED: CYCLOBENZAPRINE HCL 5 MG TABLET ONE (12:29)
[2024-05-24] MEDS ORDERED: IBUPROFEN 400 MG TABLET (FP) PO ONE (12:29)
[2024-05-24 12:31] VITALS: BP 155/78; PULSE 56; RESP 16; TEMP 97.3; BMI 31.0
== END 2024-05-24 13:10 | disposition home or self-care (01) ==
LOC: FER 12:15
DX: N48.1 Balanitis (principal)
CPT/HCPCS: 99283-25

== ENCOUNTER 2024-09-01 18:24 | Inpatient (IN) | payer OTHER ==
[2024-09-01 19:52] VITALS: BMI 32.1
[2024-09-01] MEDS ORDERED: ACETAMINOPHEN INJECTION 100 ML ONE (20:17)
[2024-09-01] MEDS: ACETAMINOPHEN 1000 MG/100 ML BAG IVPB ONE (20:44)
[2024-09-01 20:51] LABS: VENOUS BASE EXCESS -0.2 mmol/L (-2-2); VENOUS O2 SATURATION 42.1 % (70-80); VENOUS PCO2 42.5 mmHg (38-52); VENOUS PH 7.387 (7.310-7.410)
[2024-09-01 20:55] LABS: BASO % 0.2 % (0-2.0); EOS % 0.2 % (0-4.5); HEMATOCRIT 42.9 % (35.4-49); LYMPH % 6.2 % (8-40); MCH 27.8 pg (25.7-33.7); MCHC 32.6 g/dl (32.0-35.9); MEAN CELL VOLUME 85.3 fl (80-96); MEAN PLT VOLUME 7.9 fl (7.5-11.1); MONO % 7.9 % (3.8-10.2); NEUT % 85.5 % (42.8-82.8); PLATELET COUNT 168 10^3/uL (134-434); RBC 5.03 M/mm3 (4.00-5.60); RDW 15.9 % (11.9-15.9); WHITE BLOOD COUNT 7.4 K/mm3 (4.0-10.0)
[2024-09-01 21:01] LABS: INR 1.24 (0.83-1.09); PROTHROMBIN TIME (PATIENT) 13.9 SEC (9.7-13.0)
[2024-09-01 21:04] LABS: ACTIVATED PTT 24.9 SECONDS (25.2-36.5)
[2024-09-01 21:11] LABS: POTASSIUM 3.8 mmol/L (3.5-5.1)
[2024-09-01 21:12] LABS: CALCIUM 9.4 mg/dL (8.5-10.1)
[2024-09-01 21:13] LABS: ALBUMIN 3.1 g/dl (3.4-5.0); BLOOD UREA NITROGEN 26.3 mg/dL (7-18)
[2024-09-01 21:18] LABS: BILIRUBIN,TOTAL 0.4 mg/dL (0.2-1); TOT PROT 6.9 g/dl (6.4-8.2)
[2024-09-01 21:23] LABS: LACTIC ACID 4.5 mmol/L (0.4-2.0)
[2024-09-01] MEDS ORDERED: VANCOMYCIN 1 GM PREMIX (F) 1 GM/200 ML BAG ONE (21:25)
[2024-09-01] MEDS ORDERED: PIPERACILLIN/TAZOB 4.5 GM 4.5 GM/100 ML BAG IVPB ONE (21:25)
[2024-09-01] MEDS: PIPERACILLIN/TAZOB 4.5 GM 4.5 GM in DEXTROSE 5%-WATER 100 ML IVPB ONE (21:45)
[2024-09-01 22:10] LABS: EPI CELLS 3 /uL (0-25.1); HYALINE CASTS 1 /uL (0-3.1); PH,URINE 5.5 (5.0-8.0); URINE APPEARANCE CLEAR; URINE BACTERIA >9,000 /uL (0-1359); URINE BILIRUBIN NEGATIVE (NEGATIVE); URINE COLOR YELLOW; URINE GLUCOSE (UA) 3+ (NEGATIVE); URINE KETONE NEGATIVE (NEGATIVE); URINE LEUK ESTERASE 2+ (NEGATIVE); URINE NITRITE POSITIVE (NEGATIVE); URINE PROTEIN NEGATIVE (NEGATIVE); URINE UROBILINOGEN 0.2 mg/dL (0.2-1.0); URINE WBC 271 /uL (0-25.8)
[2024-09-01] MEDS: LACTATED RINGERS SOLUTION 1000 ML INFUS.BAG IV ONE (22:19)
[2024-09-01] MEDS: SODIUM CHLORIDE 0.9% 1000 ML INFUS.BAG IV ONE (22:22)
[2024-09-01] MEDS: VANCOMYCIN 1,000 MG in DEXTROSE 5%-WATER - 250 ML IVPB ONE (23:44)
[2024-09-02] MEDS: LACTATED RINGERS SOLUTION 1000 ML INFUS.BAG IV ONE (00:18)
[2024-09-02] MEDS ORDERED: DOCUSATE SODIUM 100 MG CAPSULE (FP) PO PRN (04:23)
[2024-09-02] MEDS ORDERED: ACETAMINOPHEN 325 MG TABLET (FP) PO PRN ×2 (04:23→07:55)
[2024-09-02] MEDS ORDERED: TAMSULOSIN HCL 0.4 MG CAP ONE (08:43)
[2024-09-02] MEDS ORDERED: metFORMIN HCL 500 MG TABLET (FP) ONE (08:44)
[2024-09-02] MEDS: TAMSULOSIN HCL 0.4 MG CAP PO SCH (08:48)
[2024-09-02] MEDS: metFORMIN HCL 500 MG TABLET (FP) PO SCH (08:48)
[2024-09-02] MEDS ORDERED: CEFTRIAXONE 1 G/50 ML PREMIX 50 ML IVPB ONE (09:22)
[2024-09-02] MEDS: CEFTRIAXONE 1 G/50 ML PREMIX 50 ML IVPB SCH (09:24)
[2024-09-02] MEDS: EMPAGLIFLOZIN (JARDIANCE) 10 MG TABLET PO SCH (09:48)
[2024-09-02] MEDS ORDERED: HEPARIN NA (PORCINE) 5,000 UNITS/ML 1ML VIAL ONE (13:04)
[2024-09-02] MEDS: HEPARIN NA (PORCINE) 5,000 UNITS/ML 1ML VIAL SQ SCH (13:06)
[2024-09-02 17:48] LABS: POTASSIUM 3.3 mmol/L (3.5-5.1)
[2024-09-02 17:49] LABS: BLOOD UREA NITROGEN 19.6 mg/dL (7-18)
[2024-09-02 17:53] LABS: CREATININE 1.4 mg/dL (0.55-1.3)
[2024-09-02] MEDS: SODIUM CHLORIDE 0.45% 500 ML IV SCH (20:55)
[2024-09-02] MEDS: METOPROLOL TARTRATE 5 MG/5 ML VIAL IVPUSH ONE (22:51)
[2024-09-03 08:12] LABS: BASO % 0.3 % (0-2.0); HEMATOCRIT 40.5 % (35.4-49); HEMOGLOBIN 13.3 GM/dL (11.7-16.9); LYMPH % 25.5 % (8-40); MCH 27.9 pg (25.7-33.7); MCHC 32.9 g/dl (32.0-35.9); MEAN CELL VOLUME 84.9 fl (80-96); MEAN PLT VOLUME 8.1 fl (7.5-11.1); NEUT % 61.2 % (42.8-82.8); PLATELET COUNT 163 10^3/uL (134-434); RBC 4.77 M/mm3 (4.00-5.60); RDW 15.8 % (11.9-15.9); WHITE BLOOD COUNT 7.4 K/mm3 (4.0-10.0)
[2024-09-03 08:31] LABS: POTASSIUM 3.3 mmol/L (3.5-5.1)
[2024-09-03 08:41] LABS: BLOOD UREA NITROGEN 18.7 mg/dL (7-18)
[2024-09-03 08:42] LABS: CALCIUM 9.3 mg/dL (8.5-10.1); MAGNESIUM 1.6 mg/dL (1.8-2.4)
[2024-09-03 08:44] LABS: PHOSPHOROUS 3.2 mg/dL (2.5-4.9)
[2024-09-03 08:46] LABS: BILIRUBIN,TOTAL 0.8 mg/dL (0.2-1); CREATININE 1.3 mg/dL (0.55-1.3); TOT PROT 6.6 g/dl (6.4-8.2)
[2024-09-03] MEDS: POTASSIUM CHLORIDE ORAL LIQUID 20 MEQ/15 ML PO ONE (10:43)
[2024-09-03] MEDS: MAGNESIUM 2GM/50ML STERILE WATER IVPB IVPB ONE (10:43)
[2024-09-03] MEDS: APIXABAN 5 MG TABLET PO SCH (14:30)
[2024-09-03] MEDS: metoPROLOL SUCCINATE 25 MG TAB.SR.24H (FP) PO SCH (14:30)
[2024-09-03] MEDS: INSULIN ASPART SLIDING SCALE (NOVOLOG) 1 VIAL SQ SCH (18:31)
[2024-09-04 07:47] LABS: POTASSIUM 3.7 mmol/L (3.5-5.1)
[2024-09-04 08:04] LABS: BLOOD UREA NITROGEN 19.4 mg/dL (7-18); MAGNESIUM 2.1 mg/dL (1.8-2.4)
[2024-09-04 08:07] LABS: CREATININE 1.2 mg/dL (0.55-1.3)
[2024-09-04 08:09] LABS: BILIRUBIN,TOTAL 0.8 mg/dL (0.2-1); TOT PROT 6.6 g/dl (6.4-8.2)
[2024-09-04] MEDS: TAMSULOSIN HCL 0.4 MG CAP PO SCH (09:42)
[2024-09-05 12:44] LABS: BLOOD UREA NITROGEN 20.5 mg/dL (7-18); CALCIUM 9.2 mg/dL (8.5-10.1)
[2024-09-05 12:47] LABS: CREATININE 1.3 mg/dL (0.55-1.3)
[2024-09-06] MEDS ORDERED: ACETAMINOPHEN 325 MG TABLET (FP) PO PRN (00:11)
[2024-09-06] MEDS ORDERED: DOCUSATE SODIUM 100 MG CAPSULE (FP) PO PRN (00:11)
[2024-09-06] MEDS: SODIUM CHLORIDE 0.45% 500 ML IV SCH (03:50)
[2024-09-06] MEDS: INSULIN ASPART SLIDING SCALE (NOVOLOG) 1 VIAL SQ SCH (06:11)
[2024-09-06 09:13] VITALS: RESP 20
[2024-09-06] MEDS: TAMSULOSIN HCL 0.4 MG CAP PO SCH (09:13)
[2024-09-06] MEDS: metoPROLOL SUCCINATE 25 MG TAB.SR.24H (FP) PO SCH (09:13)
[2024-09-06] MEDS: APIXABAN 5 MG TABLET PO SCH (09:13)
[2024-09-06] MEDS: CEFTRIAXONE 1 G/50 ML PREMIX 50 ML IVPB SCH (09:13)
[2024-09-06 13:38] VITALS: BP 124/65; PULSE 75; TEMP 97.2
== END 2024-09-06 03:16 | disposition home or self-care (01) | DRG 690 ==
LOC: JER 18:24 → JERBED 09-02 01:56 → J4W 09-02 16:08 → J6S 09-05 19:44
PROVIDERS: ADMIT Internal Medicine; ATTEND Internal Medicine
DX: N39.0 Urinary tract infection, site not specified (principal); N17.9 Acute kidney failure, unspecified; E87.20 Acidosis, unspecified; N40.0 Benign prostatic hyperplasia without lower urinary tract symptoms; K21.9 Gastro-esophageal reflux disease without esophagitis; I10 Essential (primary) hypertension; E78.5 Hyperlipidemia, unspecified; E87.6 Hypokalemia; E83.42 Hypomagnesemia; E11.65 Type 2 diabetes mellitus with hyperglycemia; R62.50 Unspecified lack of expected normal physiological development in childhood; I48.91 Unspecified atrial fibrillation
CPT/HCPCS: 0241U-QW; 36415; 71045-TC-FY; 74176-TC; 80048; 80053; 81003; 82803; 82962; 83036; 83605; 83735; 84100; 84439; 84443; 84484; 85025; 85610; 85730; 86850; 86900; 86901; 87040; 87086; 87186; 93005; 93010; 93306-TC; 97116-GP; 97161-GP; 99285-25; J0131; J1644